=== PATIENT | female | born 1940 | race Caucasian/White ===

== ENCOUNTER → 2017-01-23 | Outpatient (CLI) | payer OTHER, BC ==
[~2017-01-23] VITALS: Ht 147.3 cm; Wt 67.2 kg
[~2017-01-23] MED LIST: ADVIL100 M2 PO; ALDACTONE25 MG PO; ALLERGY-TIME4 MG PO; B-100 COMPLEX100 MG PO; CALCIUM 600 +1 EAC1 PO; CELEBREX 200 M200 M1; COLACE100 MG PO; ESTRACE1 MG PO; HYDROCODON-ACE1 EAC7 PO; HYDROCODON-ACET15 ML PO; LEVOTHYROXINE0.05 MG PO; MAGNESIUM500 MG PO; MOBIC15 MG PO; MOBIC7.5 MG PO; MOM PO; PERCOCET 5-3251 EACH; PRAVACHOL40 MG PO; PRILOSEC 20 MG20 MG PO; TRAMADOL 50 MG50 MG PO; VIT A-BETA25000 UNIT PO; VITAMIN C + RO500 MG PO; VITAMIN D1000 UNI1 PO; XARELTO10 M1; XARELTO10 M1 PO
--- NOTE | ~2017-01-23 | HPC ---
[facility] [place] [address] PAIN MANAGEMENT CONSULTATION Name: ROSALIND GUERIN I Room #: REG GABRIELLA Franco.#: [id number] Admission: 01/23/17 Attend Phys: Knvg Mcwilliams DO Discharge: Date of : 39 Report #: [id number] THIS REPORT FOR: //name// CC: Kvng Avalos MD DATE OF SERVICE: 01/23/2017 CHIEF COMPLAINT: Axial back pain, right upper buttock pain. HISTORY OF PRESENT ILLNESS: As you know, the patient is a very pleasant 77-year-old female who returns today in followup visit with axial back pain, right upper buttock pain. The pain appears to be related to facet arthropathy in the right sacroiliac joint. We discussed with the patient at previous visit about various treatment options we have available. We started the patient on nonsteroidal anti-inflammatories for which the patient does report improvement in symptoms. She states that her daily activities are well controlled with meloxicam, but she has exacerbation of symptoms when she is much more active. She wishes to discuss possible changes in medication therapy, interventional treatments that might address ongoing axial back pain and right upper buttock symptoms. ALLERGIES: PENICILLIN. CURRENT MEDICATIONS: Estradiol 1 mg per day, spironolactone 50 mg twice a day, pantoprazole 20 mg per day, ascorbic acid 500 mg once a day, vitamin B complex 1 tab per day, cholecalciferol 1000 units per day, levothyroxine 50 mcg per day, magnesium oxide 500 mg per day, meloxicam 7.5 mg twice a day. SOCIAL HISTORY: The patient denies tobacco, alcohol, IV or illicit drug use. She is retired, retired years ago. She is accompanied by her who is present in room today. IMAGING: No new imaging available. PHYSICAL EXAMINATION: VITAL SIGNS: Blood pressure 157/66, pulse 76, respiratory rate 16, unlabored. The patient is 98% on room air, height 4 feet 10 inches tall, weight 148.2 pounds, BMI calculated 31. GENERAL: Well-developed, well-nourished, well-hydrated 77-year-old female appearing stated age, placing pain score today 2/10. HEENT: Normocephalic, atraumatic. Pupils equal, round, reactive to light. EXTREMITIES: Show no clubbing, no cyanosis, no edema. MUSCULOSKELETAL: The patient has palpatory tenderness over the lower lumbar [facility] [address] [place] [address] PAIN MANAGEMENT CONSULTATION Name: ROSALIND GUERIN I Room #: REG GABRIELLA Vadim#: [id number] Admission: 01/23/17 Attend Phys: Kvng Mcwilliams DO Discharge: Date of : 39 Report #: [id number] spine, right greater than left. Palpatory tenderness over the facet joints at L4-L5 and L5-S1 cause intensification of pain. Lumbar provocation testing also leads to axial back symptoms. Seated straight leg raising negative. Supine straight leg raising negative. There is palpatory tenderness noted over the right sacroiliac joint. Deep palpation in area causes intensification of symptoms as well. ASSESSMENT: 1. Right sacroiliac joint pain. 2. Lumbosacral spondylosis without radicular symptoms. 3. Facet arthropathy of the lumbar spine. 4. Degeneration of lumbar spine. 5. Spinal stenosis of the lumbar region. 6. Chronic intractable pain. PLAN: 1. The patient returns today in followup visit where we have discussed the findings on physical exam, how they correlate to the patient's symptoms. It does appear the patient suffers from facet arthropathy of the lumbar region, also some SI joint dysfunction. We discussed with the patient that options for treatment would include physical therapy, stretching exercise, core strengthening. The patient indicates that this would be near impossible for them to achieve secondary to lack of access to physical therapy within the area, also lack of available funds to pay for the co-pays. We discussed medication management, continuation of the nonsteroidal anti-inflammatory, which works for her daily pain levels and addition of a pain medication for as needed when the patient becomes more active. We also discussed intra-articular facet injections, medial branch nerve blocks, radiofrequency lesioning to address axial back pain and we discussed intraarticular SI joint injections for the right SI joint dysfunction. After reviewing risks and benefits of all proposed treatment options, the patient chose medication management changes. 2. The patient will be continued on the meloxicam, this is working well for her baseline pain. She was given 7.5 mg dose 1 tab p.o. b.i.d., given #60 tablets, 6 refills that gives her 7 months' worth of medication. 3. The patient was provided a prescription of tramadol 50 mg dose 1 tab every 6 hours p.r.n. for pain, given the patient #120 tablets, 2 refills. The patient is to utilize this medication when she is attempting to become more active. She should take this about 20 minutes before her activity and may take a second tablet after she completes her physical activity for the day. She is to watch for side effects such as somnolence, decrease in mental acuity, disorientation, confusion and constipation with the use of this medication. 4. We will see the patient back in followup visit in approximately 3 months, [address] [address] PAIN MANAGEMENT CONSULTATION Name: ROSALIND GUERIN I Room #: REG GABRIELLA Fierro#: [id number] Admission: 01/23/17 Attend Phys: Kvng Mcwilliams DO Discharge: Date of : 39 Report #: [id number] then we will review efficacy of medication at that time and discuss interventional treatments if necessary. By: [id number] Kvng Mcwilliams DO /nt
[2017-01-23 13:44] VITALS: BP 157/66
== END | disposition home or self-care (01) ==
LOC: PAIN 06:34
DX: M53.3 Sacrococcygeal disorders, not elsewhere classified (principal); M47.897 Other spondylosis, lumbosacral region; M51.36 Other intervertebral disc degeneration, lumbar region; M48.06 Spinal stenosis, lumbar region; G89.29 Other chronic pain

== ENCOUNTER → 2017-04-11 | Outpatient (CLI) | payer OTHER, BC | LOC: RAD 11:57 | DX: Z12.31 Encounter for screening mammogram for malignant neoplasm of breast (principal) ==

== ENCOUNTER → 2017-10-02 | Outpatient (CLI) | payer OTHER, BC ==
[~2017-10-02] VITALS: Ht 147.3 cm; Wt 66.5 kg
[~2017-10-02] MED LIST changes: +LUTEIN-ZEAXANT1 EACH PO; +VITAMINC500 PO
--- NOTE | ~2017-10-02 | HPC ---
[facility] [address] [place] [address] PAIN MANAGEMENT CONSULTATION Name: ROSALIND GUERIN I Room #: REG GABRIELLA M.R.#: [id number] Admission: 10/02/17 Attend Phys: Kvng Mcwilliams DO Discharge: Date of : 39 Report #: [id number] THIS REPORT FOR: //name// CC: Kvng Avalos MD DATE OF SERVICE: 10/02/2017 REFERRING PHYSICIAN: Luz Ferrari. CHIEF COMPLAINT: Low back pain, right buttock and posterolateral thigh pain. HISTORY OF PRESENT ILLNESS: As you know, the patient is a very pleasant 77-year-old female who returns today in followup visit with recurrent low back pain, right lower extremity pain with paresthesias. The patient places current pain score 6-7/10. States the pain is shooting, sharp, numbness and tingling in sensation, exacerbated with standing, walking and bending, improves with medications. She returns today reporting 90% improvement in overall pain with previous epidural injection lasting for nearly 2 months. She returns today requesting next in the series of epidural injections to improve the current 6-7/10 pain. She has denied new injury, new trauma that may have led to continuation of symptoms. ALLERGIES: PENICILLIN. CURRENT MEDICATIONS: Estradiol 1 mg once a day, spironolactone 50 mg twice a day, pantoprazole 20 mg once a day, ascorbic acid 500 mg once a day, vitamin B complex 1 tab per day, cholecalciferol 1000 units per day, levothyroxine 50 mcg per day, magnesium oxide 500 mg once a day, meloxicam 7.5 mg twice a day. SOCIAL HISTORY: The patient denies tobacco, alcohol, IV or illicit drug use. She is retired, retired years ago. She is accompanied by her who is present in room today. IMAGING: No new imaging available. PQRS: The patient does have history of osteoarthritis, no rheumatoid arthritis. Osteoarthritis is being treated conservatively. Pain intensity today 6-02/26. Fall risk is no, she has not had a fall in the past 3 months. She is not on blood thinner. She is not being treated currently for hypertension. She is not on opioids longer than 6 months. She has a low risk for opioid abuse. Functional assessment tool shows pain impact of 41/70, indicating mild to moderate interference. [address] [address] PAIN MANAGEMENT CONSULTATION Name: ROSALIND GUERIN I Room #: REG LUCHOTim Fierro#: [id number] Admission: 10/02/17 Attend Phys: Kvng Mcwilliams DO Discharge: Date of : 39 Report #: [id number] PHYSICAL EXAMINATION: VITAL SIGNS: Blood pressure 173/65, pulse is 81, respiratory rate 16, unlabored, the patient is 97% on room air. Height 4 feet 10 inches tall, weight 146.6 pounds, BMI calculated 30.6. GENERAL: Well-developed, well-nourished, well-hydrated 77-year-old female, appearing her stated age, placing current pain score 6-7/10. HEENT: Normocephalic, atraumatic. Pupils equal, round, reactive to light. Extraocular muscles are intact. EXTREMITIES: Show no clubbing, no cyanosis, no edema. MUSCULOSKELETAL: Seated straight leg raising negative. Supine straight leg raising positive on the right. Danya test negative. Modified Gaenslen's positive for axial low back pain. Ankle clonus negative. Babinski is negative. ASSESSMENT: 1. Symptomatic lumbar radiculopathy. 2. Lumbosacral spondylosis with radiculopathy. 3. Facet arthropathy of the lumbar spine. 4. Degeneration of the lumbar spine. 5. Spinal stenosis of the lumbar spine. 6. Chronic intractable pain. PLAN: 1. The patient returns today in followup visit having received 90% improvement in overall pain with the epidural injection provided at last visit. She returns today in followup visit requesting to undergo next in the series of epidural injections to build on success of previous intervention to address her 6-7/10 pain. The patient has been advised risks and benefits of the procedure, states understood and wished to proceed. 2. No medication changes were made at today's visit. The patient to continue current medical therapy as previously prescribed. 3. The patient to return to our clinic on an as needed basis for possible next in the series of epidural injections. PROCEDURE NOTE: DESCRIPTION OF PROCEDURE: L5-S1 interlaminar epidural steroid injection under fluoroscopic guidance. This is the 2nd procedure of the first series that the patient is undergoing. After obtaining written consent, the patient was taken back to the fluoroscopy suite, placed in a prone position with pillow under the abdomen to decrease lumbar lordosis. The skin overlying the lumbosacral area was then prepped and draped in aseptic fashion. The L5-S1 vertebral interspace was then identified by AP fluoroscopy. The skin and subcutaneous tissue overlying the target site of injection was anesthetized with 3 mL 1% lidocaine. [address] [address] PAIN MANAGEMENT CONSULTATION Name: ROSALIND GUERIN I Room #: JENELLE Fierro#: [id number] Admission: 10/02/17 Attend Phys: Kvng Mcwilliams DO Discharge: Date of : 39 Report #: [id number] A 20-gauze 3-1/2 inch Tuohy needle was then advanced under fluoroscopic guidance towards the epidural space using a midline approach. The epidural space was identified using loss of resistance to air technique. After negative aspiration for heme or cerebrospinal fluid, a total of 1 mL of Omnipaque was injected. A lumbar epidurogram was confirmed using both AP and lateral fluoroscopy. After negative aspiration for heme or cerebrospinal fluid, 5 mL of a solution containing 2 mL 40 mg per mL, 80 mg total triamcinolone, 3 mL lidocaine 1% was injected in increments. Contrast spread was noted postepidural space. The needle was then retracted approximately half way and needle tract flushed with 1 mL of lidocaine. Needle was then removed. There were no apparent sensory or motor deficits in the lower extremity following the procedure. A sterile bandage was placed over the injection site. The heart rate, pulse, oximetry and blood pressure were continuously monitored after the procedure. There were no apparent complications. The patient tolerated the procedure well and was carefully escorted to the recovery room in stable condition. There were no apparent complications. After meeting discharge criteria, the patient was then discharged home. <ELECTRONICALLY SIGNED> By: Kvng Mcwilliams DO 10/10/17 0715 [id number] Kvng Mcwilliams DO /nt
[2017-10-02 10:24] VITALS: BP 173/65
== END ==
LOC: PAIN 07:00
DX: M54.16 Radiculopathy, lumbar region (principal); M47.817 Spondylosis without myelopathy or radiculopathy, lumbosacral region; M12.88 Other specific arthropathies, not elsewhere classified, other specified site; M51.36 Other intervertebral disc degeneration, lumbar region; M48.061 Spinal stenosis, lumbar region without neurogenic claudication; G89.29 Other chronic pain; Z88.0 Allergy status to penicillin; M54.5 Low back pain; Z79.899 Other long term (current) drug therapy; I10 Essential (primary) hypertension

== ENCOUNTER → 2017-12-25 | Outpatient (CLI) | payer OTHER, BC ==
[~2017-12-25] VITALS: Ht 147.3 cm; Wt 67.2 kg
[~2017-12-25] MED LIST changes: -LUTEIN-ZEAXANT1 EACH PO
--- NOTE | ~2017-12-25 | HPC ---
[facility] [place] [address] PAIN MANAGEMENT CONSULTATION Name: ROSALIND GUERIN I Room #: REG GABRIELLA M.Hallie.#: [id number] Admission: 12/25/17 Attend Phys: Kvng Mcwilliams DO Discharge: Date of : 39 Report #: [id number] THIS REPORT FOR: //name// CC: Kvng Avalos MD DATE OF SERVICE: 12/25/2017 CHIEF COMPLAINT: Low back pain, right buttock and posterolateral thigh pain. HISTORY OF PRESENT ILLNESS: As you know, the patient is a very pleasant 77-year-old female who returns today in followup visit with recurrence of low back pain, right lower extremity pain with paresthesias. The patient is now placing pain score at 7/10. She reports with previous epidural injection performed on 10/02/2017, a 75% improvement in overall pain. She has had a slow and progressive return of symptoms without new inciting injury or trauma. She returns requesting next in the series of epidural injections to build on success of previous intervention. ALLERGIES: PENICILLIN. CURRENT MEDICATIONS: Estradiol, spironolactone, pantoprazole, ascorbic acid, vitamin B complex, cholecalciferol, levothyroxine, magnesium oxide, meloxicam. SOCIAL HISTORY: The patient denies tobacco, alcohol, IV or illicit drug use. She is retired. retired years ago. She is unaccompanied today. IMAGING: No new imaging available. PQRS: The patient has osteoarthritis, no rheumatoid arthritis. Pain intensity today 7/10. She is not a fall risk, has not had a fall in last 3 months. She is not on blood thinners. She is not treated for hypertension. She is not on opioids. She has low risk for opioid addiction. She is placing a pain impact score functional assessment at 35/70 moderate interference. PHYSICAL EXAMINATION: VITAL SIGNS: Blood pressure 180/97, pulse 72, respiratory rate 20, unlabored. The patient is 100% on room air. Height 4 feet 10 inches tall, weight 148.2 pounds, BMI calculated 31.0. GENERAL: Well-developed, well-nourished, well-hydrated 77-year-old female, appearing her stated age, placing current pain score at 7/10. HEENT: Normocephalic, atraumatic. Pupils equal, round, reactive to light. EXTREMITIES: Show no clubbing, no cyanosis, no edema. MUSCULOSKELETAL: Lower extremity strength equal and symmetrical 5/5, muscle [address] [address] PAIN MANAGEMENT CONSULTATION Name: ROSALIND GUERIN I Room #: REG [facility]..#: [id number] Admission: 12/25/17 Attend Phys: Kvng Mcwilliams DO Discharge: Date of : 39 Report #: [id number] bulk and tone equal and symmetrical. Seated straight leg raising negative. Supine straight leg raising remains positive on the right at approximately 45 degree angle. Danya test negative. Modified Gaenslen's is positive for axial low back pain. Ankle clonus negative. Babinski is negative. ASSESSMENT: 1. Symptomatic lumbar radiculopathy. 2. Lumbosacral spondylosis with radiculopathy. 3. Facet arthropathy of the lumbar spine. 4. Degeneration of the lumbar spine. 5. Spinal stenosis of the lumbar spine. 6. Chronic intractable pain. PLAN: 1. The patient returns today in followup visit requesting to undergo next in the series of epidural injections. The patient reports good efficacy with previous injections 75% improvement in overall pain until just recently with a slow and progressive return of symptoms. She returns requesting an epidural injection to build on success of previous intervention. The patient was advised risks and benefits of this procedure. Risks have included but are not necessarily limited to bleeding, bruising, infection, worsening pain, no relief of pain, also risk of temporary or permanent muscle weakness, temporary or permanent nerve damage, possible paralysis and . The patient states she understood and wished to proceed. 2. No medication changes made at today's visit. The patient to continue current medical therapy as previously prescribed. We will see the patient back in followup visit on an as needed basis for next in a series of epidural injections. <ELECTRONICALLY SIGNED> By: Kvng Mcwilliams DO 01/01/18 0810 [id number] Kvng Mcwilliams DO /nt
--- NOTE | ~2017-12-25 | P ---
[facility] [address] PROCEDURE REPORT Name: ROSALIND GUERIN I Room #: REG [facility].#: [id number] Admission: 12/25/17 Attend Phys: Kvng Mcwilliams DO Discharge: Date of : 39 Report #: [id number] THIS REPORT FOR: //name// CC: Kvng Avalos MD DATE OF SERVICE: 12/25/2017 DESCRIPTION OF PROCEDURE: L5-S1 right paramedian epidural steroid injection under fluoroscopic guidance. This is the third procedure of the first series that the patient is undergoing. After obtaining written consent, the patient was taken back to the fluoroscopy suite, placed in a prone position with pillow under the abdomen to decrease lumbar lordosis. The skin overlying the lumbosacral area was then prepped and draped in aseptic fashion. The L5-S1 vertebral interspace was then identified by AP fluoroscopy. The skin and subcutaneous tissue overlying the target site of injection was anesthetized with 3 mL 1% lidocaine. A 20-gauge 3-1/2-inch Tuohy needle was then advanced under fluoroscopic guidance towards the epidural space using a right paramedian approach. The epidural space was identified using loss of resistance to air technique. After negative aspiration for heme or cerebrospinal fluid, a total of 1 mL of Omnipaque was injected. A lumbar epidurogram was confirmed using both AP and lateral fluoroscopy. After negative aspiration for heme or cerebrospinal fluid, 5 mL of a solution containing 2 mL 40 mg per mL, 80 mg total triamcinolone, 3 mL lidocaine 1% was injected in increments. Contrast spread was noted posterior epidural space. The needle was then retracted approximately half way and needle tract flushed with 1 mL of 1% lidocaine. Needle was then removed. There were no apparent sensory or motor deficits in the lower extremity following the procedure. A sterile bandage was placed over the injection site. The heart rate, pulse, oximetry and blood pressure were continuously monitored after the procedure. There were no apparent complications. The patient tolerated the procedure well and was carefully escorted to the recovery room in stable condition. There were no apparent complications. After meeting discharge criteria, the patient was then discharged home. <ELECTRONICALLY SIGNED> By: Kvng Mcwilliams DO 01/01/18 0810 [id number] [id number] Kvng Mcwilliams DO /nt
[2017-12-25 10:20] VITALS: BP 180/97
== END | disposition home or self-care (01) ==
LOC: PAIN 06:15
DX: M47.27 Other spondylosis with radiculopathy, lumbosacral region (principal); M48.061 Spinal stenosis, lumbar region without neurogenic claudication; M46.96 Unspecified inflammatory spondylopathy, lumbar region; G89.29 Other chronic pain; M19.90 Unspecified osteoarthritis, unspecified site; Z88.0 Allergy status to penicillin; Z79.899 Other long term (current) drug therapy; Z88.8 Allergy status to other drugs, medicaments and biological substances

== ENCOUNTER → 2018-04-02 | Outpatient (CLI) | payer OTHER, BC ==
[~2018-04-02] VITALS: Ht 147.3 cm; Wt 68.9 kg
[~2018-04-02] MED LIST changes: +LUTEIN-ZEAXANT1 EACH PO
--- NOTE | ~2018-04-02 | HPC ---
[facility] [address] [place] [address] PAIN MANAGEMENT CONSULTATION Name: ROSALIND GUERIN I Room #: REG GABRIELLA MNoble.#: [id number] Admission: 04/02/18 Attend Phys: Kvng Mcwilliams DO Discharge: Date of : 39 Report #: [id number] THIS REPORT FOR: //name// CC: Kvng Avalos MD DATE OF SERVICE: 04/02/2018 CHIEF COMPLAINT: Low back pain, right lower extremity pain with paresthesias. HISTORY OF PRESENT ILLNESS: As you know, the patient is a very pleasant 78-year-old female who returns today in followup visit requesting to undergo next in the series of epidural injections. The patient has had a slow and progressive return of symptoms, now reporting pain score at 8/10. She denies new injury, new trauma or any changes in medical history since our last visit. She has done very well with previous epidural injection reporting upwards of 80% improvement in overall pain lasting 4 months. She returns to undergo next in the series of epidural injections. ALLERGIES: PENICILLIN, FENOFIBRATE, DIPHENHYDRAMINE. CURRENT MEDICATIONS: Ocuvite, tramadol, meloxicam, estradiol, spironolactone, omeprazole, vitamin B, cholecalciferol, levothyroxine, ascorbic acid. SOCIAL HISTORY: The patient denies tobacco, alcohol, IV or illicit drug use. She is retired, retired years ago, accompanied by her , present in room today. IMAGING: No new imaging available. PQRS: The patient has known low back, osteoarthritis, bilateral hip osteoarthritis and bilateral knee osteoarthritis as well as arthritic changes in the feet bilaterally. She does not suffer from rheumatoid arthritis. She is placing pain score today at 8/10. She is not a fall risk, has not had a fall in the last 3 months. She is not on blood thinners, not treated for hypertension. She is not on chronic opioids. She is placing pain assessment at 41/70 which is a mild to moderate finding. PHYSICAL EXAMINATION: VITAL SIGNS: Blood pressure 180/95, pulse 81, respiratory rate 20 and unlabored. The patient is 98% on room air. Height 4 feet 10 inches tall, weight 152 pounds, BMI calculated 31.8. GENERAL: Well-developed, well-nourished, well-hydrated, exogenously obese 78-year-old female, appearing her stated age. She is placing current pain score [address] [address] PAIN MANAGEMENT CONSULTATION Name: ROSALIND GUERIN I Room #: REG CLI [facility].#: [id number] Admission: 04/02/18 Attend Phys: Kvng Mcwilliams DO Discharge: Date of : 39 Report #: [id number] at 8/10. HEENT: Normocephalic, atraumatic. Pupils are equal, round, reactive to light. EXTREMITIES: Show no clubbing, no cyanosis, no edema. MUSCULOSKELETAL: Seated straight leg raising negative. Supine straight leg raising is again positive on the right. Danya's test negative. Modified Gaenslen's positive for axial low back pain. Ankle clonus negative. Babinski is negative. Muscle bulk and tone equal and symmetrical in the lower extremities. ASSESSMENT: 1. Symptomatic lumbar radiculopathy. 2. Lumbosacral spondylosis with radiculopathy. 3. Facet arthropathy of the lumbar spine. 4. Degeneration of lumbar spine. 5. Spinal stenosis of the lumbar spine. 6. Chronic intractable pain. PLAN: 1. The patient returns today in followup visit requesting to undergo next in the series of epidural injections under fluoroscopic guidance. The patient has noted good benefit with previous epidural injection. She is hopeful to see similar improvement today. She has been advised the risks and benefits of the procedure, states understood and wished to proceed. 2. No medication changes made at today's visit. The patient to continue current medical therapy as previously prescribed. 3. We will see the patient back in followup visit on an as needed basis for possible next in a series of epidural injections and discuss other treatment options if necessary. PROCEDURE NOTE: DESCRIPTION OF PROCEDURE: L5-S1 right paramedian epidural steroid injection under fluoroscopic guidance. This is the first procedure of the second series that the patient is undergoing. After obtaining written consent, the patient was taken back to the fluoroscopy suite, placed in a prone position with pillow under the abdomen to decrease lumbar lordosis. The skin overlying the lumbosacral area was then prepped and draped in aseptic fashion. The L5-S1 vertebral interspace was then identified by AP fluoroscopy. The skin and subcutaneous tissue overlying the target site of injection was anesthetized with 3 mL 1% lidocaine. A 20-gauge, 3-1/2 inch Tuohy needle was then advanced under fluoroscopic guidance towards the epidural space using a right paramedian approach. The epidural space was identified using loss of resistance to air technique. After [facility] [address] [place] [address] PAIN MANAGEMENT CONSULTATION Name: ROSALIND GUERIN I Room #: REG Tim Gamez#: [id number] Admission: 04/02/18 Attend Phys: Kvng Mcwilliams DO Discharge: Date of : 39 Report #: [id number] negative aspiration for heme or cerebrospinal fluid, a total of 1 mL of Omnipaque was injected. A lumbar epidurogram was confirmed using both AP and lateral fluoroscopy. After negative aspiration for heme or cerebrospinal fluid, 5 mL of a solution containing 2 mL 40 mg per mL, 80 mg total triamcinolone, 3 mL lidocaine 1% was injected in increments. Contrast spread was noted posterior epidural space. The needle was then retracted approximately half way and needle tract flushed with 1 mL of lidocaine. Needle was then removed. There were no apparent sensory or motor deficits in the lower extremity following the procedure. A sterile bandage was placed over the injection site. The heart rate, pulse, oximetry and blood pressure were continuously monitored after the procedure. There were no apparent complications. The patient tolerated the procedure well and was carefully escorted to the recovery room in stable condition. There were no apparent complications. After meeting discharge criteria, the patient was then discharged home. <ELECTRONICALLY SIGNED> By: Kvng Mcwilliams DO 04/03/18 [id number] Kvng Mcwilliams DO /nt
[2018-04-02 13:31] VITALS: BP 180/95
== END | disposition home or self-care (01) ==
LOC: PAIN 07:07
DX: M51.16 Intervertebral disc disorders with radiculopathy, lumbar region (principal); M46.96 Unspecified inflammatory spondylopathy, lumbar region; M47.27 Other spondylosis with radiculopathy, lumbosacral region; M48.061 Spinal stenosis, lumbar region without neurogenic claudication; G89.29 Other chronic pain; Z88.8 Allergy status to other drugs, medicaments and biological substances; Z88.0 Allergy status to penicillin; Z79.899 Other long term (current) drug therapy; Z98.890 Other specified postprocedural states

== ENCOUNTER → 2018-06-20 | Outpatient (CLI) | payer OTHER, BC | LOC: RAD 03:55 | DX: Z12.31 Encounter for screening mammogram for malignant neoplasm of breast (principal) ==

== ENCOUNTER → 2018-08-27 | Outpatient (CLI) | payer OTHER, BC ==
[~2018-08-27] VITALS: Ht 147.3 cm; Wt 68.8 kg
--- NOTE | ~2018-08-27 | P ---
[facility] [place] [address] [place] [address] PROCEDURE REPORT Name: ROSALIND GUERIN I Room #: REG [facility]#: [id number] Admission: 08/27/18 Attend Phys: Kvng Mcwilliams DO Discharge: Date of : 39 Report #: [id number] THIS REPORT FOR: //name// CC: Kvng Avalos MD DATE OF SERVICE: 08/27/2018 DESCRIPTION OF PROCEDURE: L5-S1 right parasagittal epidural steroid injection under fluoroscopic guidance. This is the second procedure of the second series that the patient is undergoing. After obtaining written consent, the patient was taken back to the fluoroscopy suite, placed in a prone position with pillow under the abdomen to decrease lumbar lordosis. The skin overlying the lumbosacral area was then prepped and draped in aseptic fashion. The L5-S1 vertebral interspace was then identified by AP fluoroscopy. The skin and subcutaneous tissue overlying the target site of injection was anesthetized with 3 mL 1% lidocaine. A 20-gauge 3-1/2-inch Tuohy needle was then advanced under fluoroscopic guidance towards the epidural space using a right parasagittal approach. The epidural space was identified using loss of resistance to air technique. After negative aspiration for heme or cerebrospinal fluid, a total of 0.5 mL of Omnipaque was injected. A lumbar epidurogram was confirmed using both AP and lateral fluoroscopy. After negative aspiration for heme or cerebrospinal fluid, 5 mL of a solution containing 2 mL 40 mg per mL, 80 mg total triamcinolone, 3 mL lidocaine 1% was injected in increments. Contrast spread was noted posterior epidural space. The needle was then retracted approximately half way and needle tract flushed with 1 mL of 1% lidocaine. Needle was then removed. There were no apparent sensory or motor deficits in the lower extremity following the procedure. A sterile bandage was placed over the injection site. The heart rate, pulse, oximetry and blood pressure were continuously monitored after the procedure. There were no apparent complications. The patient tolerated the procedure well and was carefully escorted to the recovery room in [address] [address] PROCEDURE REPORT Name: [facility]IN [id number] Admission: 08/27/18 Attend Phys: Kvng Mcwilliams DO Discharge: Date of : 39 Report #: [id number] stable condition. There were no apparent complications. After meeting discharge criteria, the patient was then discharged home. By: [id number] Kvng Mcwilliams DO /nt
--- NOTE | ~2018-08-27 | HPC ---
[facility] [address] [place] [address] PAIN MANAGEMENT CONSULTATION Name: ROSALIND GUERIN I Room #: REG GABRIELLA M.R.#: [id number] Admission: 08/27/18 Attend Phys: Kvng Mcwilliams DO Discharge: Date of : 39 Report #: [id number] THIS REPORT FOR: //name// CC: Kvng Avalos MD DATE OF SERVICE: 08/27/2018 CHIEF COMPLAINT: Low back pain, right lower extremity pain with paresthesias. HISTORY OF PRESENT ILLNESS: As you know, the patient is a very pleasant 78-year-old female who returns today in followup visit to undergo next in the series of lumbar epidural injections to address lumbar radicular symptoms for which she places pain score 7/10. She states the pain is exacerbated with walking, getting in and out of chairs, repositioning and lying down tends to improve pain as well as her previous epidural injections. She reports improvement of 50%-60% with previous epidural injection lasting for 3 months. She returns today in followup visit to undergo next in the series of epidural injections. She denies new injury, new trauma or any changes in medical history since our last visit. ALLERGIES: PENICILLIN, FENOFIBRATE, DIPHENHYDRAMINE. CURRENT MEDICATIONS: Tramadol, Ocuvite, meloxicam, ascorbic acid, levothyroxine, cholecalciferol, vitamin B complex, Allergy-Time, omeprazole, spironolactone, Estrace. SOCIAL HISTORY: The patient denies tobacco, alcohol, IV or illicit drug use. She is retired, retired years ago. She is accompanied by her who is present in room today. IMAGING: No new imaging available. PQRS: The patient has known arthritic changes of low back, bilateral hips and bilateral knees as well as involving the bilateral feet. She does not have a diagnosis of rheumatoid arthritis. She is placing pain intensity today at 7/10. She is a fall risk, but has not had a fall in the last 3 months. She is utilizing a 4-prong cane for ambulation. She is not on blood thinner. She has not been treated for hypertension. She is on a chronic opioid. She has a low opiate addiction potential. She is placing pain impact score 41/70, moderate to severe interference of daily activities secondary to pain. PHYSICAL EXAMINATION: [facility] [address] [place] [address] PAIN MANAGEMENT CONSULTATION Name: ROSALIND GUERIN I Room #: JENELLE QUIROZ Vadim#: [id number] Admission: 08/27/18 Attend Phys: Kvng Mcwilliams DO Discharge: Date of : 39 Report #: [id number] VITAL SIGNS: Blood pressure 161/74, pulse is 80, respiratory rate 18 and unlabored. The patient is 99% on room air. Height 4 feet 10 inches tall, weight 151.6 pounds, BMI calculated 31.7. GENERAL: Well-developed, well-nourished, well-hydrated, exogenously obese 78-year-old female appearing stated age, placing current pain score 7/10. HEENT: Normocephalic, atraumatic. Pupils equal, round, reactive to light. EXTREMITIES: Show no clubbing, no cyanosis, no edema. MUSCULOSKELETAL: Seated straight leg raising negative. Supine straight leg raising positive right. Danya's test negative. Modified Gaenslen's is positive for axial low back pain. Muscle bulk and tone is symmetrical in comparing left lower extremity over right. Gait mildly antalgic favoring right lower extremity. ASSESSMENT: 1. Symptomatic lumbar radiculopathy. 2. Lumbosacral spondylosis with radiculopathy. 3. Facet arthropathy of the lumbar spine. 4. Lumbar degeneration. 5. Spinal stenosis of lumbar spine. 6. Chronic intractable pain. PLAN: 1. The patient has returned today in followup visit having noted excellent benefit with previous epidural injection reporting 3 months' worth of improvement, so that she could go about her activities of daily living. She returns today in followup visit requesting to undergo next in the series in hopes of improving pain further. She has been advised risks and benefits, states she understood and wished to proceed. 2. No medication changes made at today's visit. The patient to continue current medical therapy as previously prescribed. 3. We will see the patient back in followup visit on an as needed basis for possible next in the series of epidural injections. By: [id number] Kvng Mcwilliams DO /nt
[2018-08-27 10:41] VITALS: BP 161/74
--- NOTE | 2018-08-27 10:54 | NUR ---
Pain Clinic Assessment: 1. History of Osteoarthritis: YES History of Rheumatoid Arthritis: NO 2. Height: 4 ft. 10 in. 147.3 cm. Weight: 151.6 lb. oz. 68.765 kg. Patient's BMI: 31.7 3. Vital Signs: BP: 161/74 Pulse: 80 Resp: 18 Temp: 02 Sat: 99 ECG Mon: 4. Pain Intensity: 7 5. Fall Risk: Dizziness: N Needs help standing or walking: Y Fallen in the last 3 months: N Fall risk comments: 6. Patient on Blood Thinner: None 7. History of Hypertension: N 8. Opioid Therapy greater than 6 weeks: N Opiate Contract Signed: 9. Risk Assessment Tool Provided: LOW RISK 0/3 10. Functional Assessment Tool: 11. Recreational Drug Use: Never Drug Type: Tobacco Use: Never Smoker Tobacco Type: Amount or Packs/day: How Many Years: Alcohol Use: No Frequency: Quant:
== END | disposition home or self-care (01) ==
LOC: PAIN 07:31
DX: M51.16 Intervertebral disc disorders with radiculopathy, lumbar region (principal); M47.27 Other spondylosis with radiculopathy, lumbosacral region; M12.88 Other specific arthropathies, not elsewhere classified, other specified site; M48.061 Spinal stenosis, lumbar region without neurogenic claudication; G89.29 Other chronic pain; I10 Essential (primary) hypertension; E66.9 Obesity, unspecified; Z88.0 Allergy status to penicillin; Z88.8 Allergy status to other drugs, medicaments and biological substances; Z79.899 Other long term (current) drug therapy; Z79.891 Long term (current) use of opiate analgesic; Z68.31 Body mass index [BMI] 31.0-31.9, adult

== ENCOUNTER → 2018-12-03 | Outpatient (CLI) | payer OTHER, BC ==
[~2018-12-03] VITALS: Ht 147.3 cm; Wt 73.5 kg
--- NOTE | ~2018-12-03 | HPC ---
[facility] [address] [place] [address] PAIN MANAGEMENT CONSULTATION Name: ROSALIND GUERIN I Room #: REG GARBIELLA M.R.#: [id number] Admission: 12/03/18 ������������������ Attend Phys: Kvng Mcwilliams DO Discharge: ������������������ Date of : 39 Report #: [id number] THIS REPORT FOR: //name// CC: Kvng Avalos MD DATE OF SERVICE: 12/03/2018 REFERRING PHYSICIAN: Emeterio Ellington M.D. PRIMARY CARE PHYSICIAN: Naun Avalos M.D. CHIEF COMPLAINT: Low back pain and right lower extremity pain with paresthesias. HISTORY OF PRESENT ILLNESS: As you know, the patient is a 78-year-old female who returns today in followup visit requesting to undergo next in the series of lumbar epidural injections under fluoroscopic guidance. The patient reports pain today is 7/10, states the pain is sharp, pressure, shooting in sensation, exacerbated with walking, climbing upstairs or getting up from a chair, improves with repositioning and lying down and previous epidural injection. She received 50% improvement in overall pain with previous injection, returning today requesting to undergo next in the series in hopes of improving pain further. She denies new injury or new trauma. ALLERGIES: PENICILLIN, and DIPHENHYDRAMINE. CURRENT MEDICATIONS: Meloxicam, ascorbic acid, levothyroxine, estradiol, spironolactone, omeprazole, chlorphentermine, vitamin B complex and cholecalciferol. SOCIAL HISTORY: The patient denies tobacco, alcohol or IV or illicit drug use. She is retired, retired years ago, accompanied by her who is present in room today. IMAGING DATA: No new imaging available. PQRS: The patient has arthritic changes of the lumbar spine, bilateral hips and bilateral knees as well as bilateral feet. She is placing pain intensity is 7/10. She is not a fall risk but has had some issues with vertigo, which is currently being evaluated. She has not had a fall in last 3 months. She is not on blood thinners. She is not treated for hypertension. She is not on chronic opioids. She has a low opiate addiction potential. She is placing pain impact [address] [address] PAIN MANAGEMENT CONSULTATION Name: ROSALIND GUERIN I Room #: REG [facility]..#: [id number] Admission: 12/03/18 ������������������ Attend Phys: Kvng Mcwilliams DO Discharge: ������������������ Date of : 39 Report #: [id number] score today 41/70. [id number] interference of daily activities secondary to pain. PHYSICAL EXAMINATION: VITAL SIGNS: Blood pressure 156/101, pulse is 81 and respiratory rate 18 and unlabored. The patient is 96% on room air. Height 4 feet 10 inches tall and weight 162 pounds and BMI calculated 33.9. GENERAL: Well-developed, well-nourished, well-hydrated 78-year-old female appearing stated age, placing current pain score 7/10. HEENT: Normocephalic and atraumatic. Pupils equal, round and reactive to light. EXTREMITIES: Show no clubbing, no cyanosis and no edema. MUSCULOSKELETAL: Lower extremity strength appears symmetrical again today 5/5. Slight giveaway strength noted with hip flexion, knee extension on the right when compared to left. Seated straight leg raising negative. Supine straight leg raising positive on the right. Danya's test negative. Modified Gaenslen's positive for axial low back pain. Gait mildly antalgic favoring right lower extremity. ASSESSMENT: 1. Symptomatic lumbar radiculopathy. 2. Lumbosacral spondylosis with radiculopathy. 3. Facet arthropathy of the lumbar spine. 4. Lumbar degeneration. 5. Essential hypertension. 6. Chronic intractable pain. PLAN: 1. The patient has returned today in followup visit requesting to undergo next in the series of lumbar epidural injections to address 7/10 pain. She has been advised the risks and benefits of this procedure and states she understood and wished to proceed. As you are aware, the patient received 50% improvement in overall pain with previous injections, we are hopeful to see similar improvement if not better improvement with today's injection. 2. The patient's blood pressure noted to be elevated today 156/101. Previous blood pressure at her last visit was 161/74. The patient needs to follow up with her PCP for adjustments in her antihypertensive medications. We will defer to the primary team for adjustments in this therapy as this is necessary given the elevated numbers today. 3. We will see the patient back in followup visit on an as needed basis for possible next in the series of epidural injections. PROCEDURE NOTE DESCRIPTION OF PROCEDURE: L5-S1 right paramedian epidural steroid injection under fluoroscopic guidance. [address] [address] PAIN MANAGEMENT CONSULTATION Name: ROSALIND GUERIN I Room #: JENELLE Fierro#: [id number] Admission: 12/03/18 ������������������ Attend Phys: Kvng Mcwilliams DO Discharge: ������������������ Date of : 39 Report #: [id number] After obtaining written consent, the patient was taken back to fluoroscopy suite, placed in prone position with pillow under abdomen to decrease lumbar lordosis. Skin overlying lumbosacral area then prepped and draped in aseptic fashion. The L5-S1 vertebral interspace identified by AP fluoroscopy. Skin and subcutaneous tissue overlying target site of injection anesthetized with 3 mL of 1% lidocaine. A 20-gauge 3-1/2 inch Tuohy needle advanced under fluoroscopic guidance towards the epidural space using a right paramedian approach. Epidural space identified using loss of resistance to air technique. After negative aspiration for heme or cerebrospinal fluid, 1 mL of Omnipaque injected. Lumbar epidurogram confirmed using both AP and lateral fluoroscopy. After negative aspiration for heme or cerebrospinal fluid, 5 mL of a solution containing 2 mL 40 mg per mL, 80 mg total triamcinolone and 3 mL lidocaine 1% injected slowly. Needle retracted long-term, flushed with 1 mL of 1% lidocaine and then removed. Sterile bandage placed over injection site. No new motor deficits present in lower extremity following procedure. The patient tolerated procedure well, carefully escorted to recovery room in stable condition. No apparent complications. After meeting discharge criteria, the patient discharged home. ��������������������������������������������� ���������������������������������������� By: ��������������������������������������������� 0900 [id number] Kvng Mcwilliams DO /nt
[2018-12-03 10:02] VITALS: BP 156/101
--- NOTE | 2018-12-03 10:08 | NUR ---
Pain Clinic Assessment: 1. History of Osteoarthritis: YES History of Rheumatoid Arthritis: NO 2. Height: 4 ft. 10 in. 147.3 cm. Weight: 162.0 lb. oz. 73.483 kg. Patient's BMI: 33.9 3. Vital Signs: BP: 156/101 Pulse: 81 Resp: 18 Temp: 02 Sat: 96 ECG Mon: 4. Pain Intensity: 7 5. Fall Risk: Dizziness: Y Needs help standing or walking: N Fallen in the last 3 months: N Fall risk comments: VERTIGO WHEN TURNS OVER IN BED 6. Patient on Blood Thinner: None 7. History of Hypertension: N 8. Opioid Therapy greater than 6 weeks: N Opiate Contract Signed: 9. Risk Assessment Tool Provided: LOW RISK 0/3 10. Functional Assessment Tool: 41/70 11. Recreational Drug Use: Never Drug Type: Tobacco Use: Never Smoker Tobacco Type: Amount or Packs/day: How Many Years: Alcohol Use: No Frequency: Quant:
== END | disposition home or self-care (01) ==
LOC: PAIN 06:52
DX: M51.16 Intervertebral disc disorders with radiculopathy, lumbar region (principal); M47.27 Other spondylosis with radiculopathy, lumbosacral region; I10 Essential (primary) hypertension; G89.29 Other chronic pain; Z68.33 Body mass index [BMI] 33.0-33.9, adult; Z88.0 Allergy status to penicillin; Z88.8 Allergy status to other drugs, medicaments and biological substances; Z79.899 Other long term (current) drug therapy; M54.5 Low back pain

== ENCOUNTER → 2019-04-22 | Outpatient (CLI) | payer OTHER, BC | LOC: NUC 10:28 | DX: M81.0 Age-related osteoporosis without current pathological fracture (principal); M85.89 Other specified disorders of bone density and structure, multiple sites; N91.2 Amenorrhea, unspecified; Z78.0 Asymptomatic menopausal state ==

== ENCOUNTER → 2019-06-13 | Outpatient (CLI) | payer OTHER, BC ==
[~2019-06-13] MED LIST changes: +SHINGRIX V50 MCG/0.5 IM
== END ==
LOC: MRI 12:10
DX: M51.37 Other intervertebral disc degeneration, lumbosacral region (principal); M43.16 Spondylolisthesis, lumbar region; M51.46 Schmorl's nodes, lumbar region; M48.061 Spinal stenosis, lumbar region without neurogenic claudication

== ENCOUNTER → 2019-06-17 | Outpatient (CLI) | payer OTHER, BC ==
[~2019-06-17] VITALS: Ht 147.3 cm; Wt 67.9 kg
[2019-06-17 12:55] VITALS: BP 156/78
--- NOTE | 2019-06-17 13:11 | NUR ---
Pain Clinic Assessment: 1. History of Osteoarthritis: YES History of Rheumatoid Arthritis: NO 2. Height: 4 ft. 10 in. 147.3 cm. Weight: 149.6 lb. oz. 67.858 kg. Patient's BMI: 31.3 3. Vital Signs: BP: 156/78 Pulse: 74 Resp: 18 Temp: 02 Sat: 99 ECG Mon: 4. Pain Intensity: 5 5. Fall Risk: Dizziness: N Needs help standing or walking: Y Fallen in the last 3 months: N Fall risk comments: VERTIGO WHEN TURNS OVER IN BED 6. Patient on Blood Thinner: None 7. History of Hypertension: N 8. Opioid Therapy greater than 6 weeks: N Opiate Contract Signed: 9. Risk Assessment Tool Provided: LOW RISK 0/3 10. Functional Assessment Tool: 41/70 11. Recreational Drug Use: Never Drug Type: Tobacco Use: Never Smoker Tobacco Type: Amount or Packs/day: How Many Years: Alcohol Use: No Frequency: Quant:
--- NOTE | 2019-06-24 12:48 | HPC ---
[facility] [address] [place] [address] PAIN MANAGEMENT CONSULTATION Name: ROSALIND GUERIN I Room #: JENELLE QUIROZ MNoble.#: [id number] Admission: 06/17/19 Attend Phys: Kvng Mcwilliams DO Discharge: Date of : 39 Report #: [id number] THIS REPORT FOR: //name// CC: Kvng Avalos MD DATE OF SERVICE: 06/17/2019 REFERRING PHYSICIAN: Luz Ferrari PRIMARY CARE PHYSICIAN: Naun Avalos MD CHIEF COMPLAINT: Left hip pain. HISTORY OF PRESENT ILLNESS: As you know, the patient is an 79-year-old female who returns today in followup visit with ongoing left hip pain. She has been evaluated from orthopedic standpoint and sent for physical therapy. The patient's gait is quite antalgic. There is actually an abnormal motion during her gait involving that left hip. There is noted a "popping" sensation when the patient moves. She sustains a near fall after taking a couple of the first steps. She returns today in followup visit with concerns of this ongoing left hip pain. She denies injury or trauma to the area that may have led to symptom continuation, though she does report that while she was doing some activity, she felt a popping sensation that has led to this issue, this was months ago. There has been nothing new. She returns today in followup visit with concerns of this ongoing left hip and buttock symptoms. ALLERGIES: PENICILLIN AND DIPHENHYDRAMINE. CURRENT MEDICATIONS: Meloxicam, ascorbic acid, levothyroxine, estradiol, spironolactone, omeprazole, chlorphentermine, vitamin B complex and cholecalciferol. SOCIAL HISTORY: The patient denies tobacco, alcohol, IV or illicit drug use. She is retired, retired years ago, accompanied by her present in room today. IMAGING: No new imaging available. PQRS: The patient has known arthritic changes of the lumbar spine, bilateral hips, bilateral knees and bilateral feet. She is placing pain intensity today at around 5/10. She is a fall risk, but has not had a fall in the last 3 months. She is utilizing ambulatory devices today a cane. No blood thinners. [address] [address] PAIN MANAGEMENT CONSULTATION Name: ROSALIND GUERIN I Room #: REG [facility].#: [id number] Admission: 06/17/19 Attend Phys: Kvng Mcwilliams DO Discharge: Date of : 39 Report #: [id number] She is treated for hypertension. She is on no opioids. She has a low opiate addiction potential. Pain impact score 41/70, moderate to severe interference of daily activities secondary to pain. PHYSICAL EXAMINATION: VITAL SIGNS: Blood pressure 156/78, pulse 74, respiratory rate 18 and unlabored. The patient is 99% on room air. Height 4 feet 10 inches tall, weight 149.6 pounds, BMI calculated 31.3. GENERAL: Well-developed, well-nourished, well-hydrated 79-year-old female appearing stated age, pain is rated around 5/10. HEENT: Normocephalic, atraumatic. Pupils equal, round, reactive to light. Extraocular muscles are intact. Sclerae are nonicteric without injection. NEUROLOGIC: Cranial nerves 2-12 are grossly intact. Speech fluent. The patient deemed an excellent historian. EXTREMITIES: Show no clubbing, no cyanosis, no edema. MUSCULOSKELETAL: The patient has gait changes on the left when compared to the right. There is a definitive strength loss on the left when compared to the right, mainly involving the gluteal muscles. She has no radicular component to her symptoms. Seated straight leg raising negative. Supine straight leg raising negative. Danya's is positive on the left. Modified Gaenslen's positive for some axial low back pain. ASSESSMENT: 1. Left hip pain. 2. Left pelvic pain. 3. Antalgic left gait. 4. History of chronic lumbar radiculopathy without radicular component. PLAN: 1. The patient returns today in followup visit with what appears to be an intrinsic hip pathology causing gait disturbance. The patient and I discussed this at length today. She has been seen by Orthopedics and they sent her for x-ray imaging. Apparently, the physician did not even take the time according to the patient to evaluate her gait. There is a significant gait abnormality that is quite concerning. I have recommended the patient undergo further imaging to determine the source of his gait abnormality. The patient reports that her pain and gait disturbance began directly after she felt a tearing and popping sensation in the left gluteal area. There is no radiation of symptoms in a radicular fashion that would be concerning for radiculopathy at this point. Given this unusual gait and the sensations the patient is experiencing as well as the palpatory changes when she is moving, I recommend further imaging. The patient was sent for MRI of the left hip and pelvis as quickly as possible. Prescription was provided for this imaging today without contrast. 2. The patient will be establishing an appointment to return to our clinic once she has completed this imaging, so we can review the findings and determine a course of treatment. We are hopeful the patient will have this MRI as quickly [address] [address] PAIN MANAGEMENT CONSULTATION Name: ROSALIND GUERIN I Room #: JENELLE QUIROZ Vadim#: [id number] Admission: 06/17/19 Attend Phys: Kvng Mcwilliams DO Discharge: Date of : 39 Report #: [id number] as possible. We will review those findings and then schedule to have her seen by the appropriate physician based on that pathology. 3. The patient was provided refill prescription of meloxicam 7.5 mg 1 tab p.o. b.i.d.; she was given #60 tablets with 11 refills 1-year worth of medication. 4. We will see the patient back in followup visit once she has completed the MRI of the left hip and pelvis area. <ELECTRONICALLY SIGNED> By: Kvng Mcwilliams DO 06/24/19 1248 0823 0054 Kvng Mcwilliams DO /nt
== END ==
LOC: PAIN 04-29 11:54
DX: M54.16 Radiculopathy, lumbar region (principal); R10.2 Pelvic and perineal pain; M25.552 Pain in left hip; Z88.0 Allergy status to penicillin; Z79.899 Other long term (current) drug therapy

== ENCOUNTER → 2019-06-23 | Outpatient (CLI) | payer OTHER, BC | LOC: MRI 12:37 | DX: S76.012A Strain of muscle, fascia and tendon of left hip, initial encounter (principal); M16.12 Unilateral primary osteoarthritis, left hip; M25.752 Osteophyte, left hip; M47.816 Spondylosis without myelopathy or radiculopathy, lumbar region; M48.061 Spinal stenosis, lumbar region without neurogenic claudication; M51.86 Other intervertebral disc disorders, lumbar region; M51.87 Other intervertebral disc disorders, lumbosacral region; X58.XXXA Exposure to other specified factors, initial encounter; Y93.89 Activity, other specified; Y92.89 Other specified places as the place of occurrence of the external cause; Y99.8 Other external cause status ==

== ENCOUNTER → 2019-07-01 | Outpatient (CLI) | payer OTHER, BC | LOC: RAD 11:45 | DX: Z12.31 Encounter for screening mammogram for malignant neoplasm of breast (principal) ==

== ENCOUNTER → 2019-08-05 | Outpatient (CLI) | payer OTHER, BC ==
[~2019-08-05] VITALS: Ht 147.3 cm; Wt 67.8 kg
[~2019-08-05] MED LIST changes: +NEURONTIN 300M300 M2 PO
[2019-08-05 13:10] VITALS: BP 164/93
--- NOTE | 2019-08-27 12:54 | HPC ---
[facility] [address] [place] [address] PAIN MANAGEMENT CONSULTATION Name: ROSALIND GUERIN I Room #: REG [facility] M.R.#: [id number] Admission: 08/05/19 Attend Phys: Kvng Mcwilliams DO Discharge: Date of : 39 Report #: [id number] THIS REPORT FOR: //name// CC: Kvng Avalos MD DATE OF SERVICE: 08/05/2019 CHIEF COMPLAINT: Back pain and post-surgical pain. HISTORY OF PRESENT ILLNESS: As you know, the patient is a very pleasant 79-year-old female who returns today in followup visit for adjustments in medication management to address any residual pain she is experiencing from her axial back and prior hip surgery. She reports pain levels today about 5/10. She denies new injury or trauma, but states that she is still recovering from the surgery of her hip. She returns today for adjustments in medication management to address any residual pain she is experiencing today. ALLERGIES: PENICILLIN, FENOFIBRATE, DIPHENHYDRAMINE. CURRENT MEDICATIONS: Gabapentin 300 mg b.i.d., meloxicam 7.5 mg twice a day, tramadol 50 mg every 8 hours p.r.n. for pain, ascorbic acid 500 mg per day, levothyroxine 50 mcg per day, cholecalciferol 1000 units 2 tabs per day, vitamin B complex 100 mg once a day, Prilosec 20 mg per day, spironolactone 25 mg per day, Estrace 1 mg per day. SOCIAL HISTORY: The patient denies tobacco, alcohol, IV or illicit drug use. She is accompanied by her , present in room today. IMAGING: No new imaging available. PQRS: The patient has known arthritic changes of bilateral hips, status post total hip arthroplasty, bilateral knees and hands. No rheumatoid arthritis. She is placing pain intensity at 5/10. She is a fall risk, but has not had a fall in last 3 months. She does report some vertigo when turning over in bed or making a rapid movement that leads her to be a risk for fall. She is not on blood thinners, but is treated for hypertension. She is not on chronic opioid. She has a low opioid addiction potential and pain impact score rated today 41/70, moderate interference of daily activities secondary to pain. PHYSICAL EXAMINATION: VITAL SIGNS: Blood pressure 164/93, pulse 70, respiratory rate 16 and unlabored. The patient is 100% on room air. Height 4 feet 10 inches tall, weighs 149.4 pounds, BMI calculated 31.2[place] [address] PAIN MANAGEMENT CONSULTATION Name: ROSALIND GUERIN I Room #: REG [facility] Vadim#: [id number] Admission: 08/05/19 Attend Phys: Kvng Mcwilliams DO Discharge: Date of : 39 Report #: [id number] GENERAL: Well-developed, well-nourished, well-hydrated 79-year-old female appearing stated age, pain is rated right today at around 5/10. HEENT: Normocephalic, atraumatic. Pupils are equal, round, reactive to light. EXTREMITIES: Show no clubbing, no cyanosis, and no edema. MUSCULOSKELETAL: Gait has improved slightly from our previous evaluation. She still is favoring the total hip arthroplasty, but this has improved significantly. Muscle bulk and tone appears symmetrical in comparing left lower extremity to right. Seated straight leg raising negative. Supine straight leg raising negative. Danya's test remains positive. Modified Gaenslen's positive for some axial low back pain. Ankle clonus negative. Babinski is negative. ASSESSMENT: 1. Osteoarthritis of the left hip, status post total hip arthroplasty. 2. Mildly antalgic left gait. 3. Chronic lumbar radiculopathy. 4. Lumbosacral spondylosis with radiculopathy. PLAN: 1. The patient returns today in followup visit where we have discussed at length the healing process that will be necessary after undergoing a total hip arthroplasty. This could take anywhere from 4 weeks out to as much as 4 months. The patient is still within that timeframe and is improving slowly. She continues to experience some axial back pain issues, which I believe are facet arthropathy related today. We will make adjustments in her medication management by increasing her tramadol dose in hopes of improving pain. The patient is amenable to undergo increase in this medication. 2. The patient was provided prescription of tramadol 50 mg dose 1 tab p.o. q.i.d. given the patient #120 tablets, releasing today. The patient was advised to take the medication as directed, not to take the medication prophylactically. If she notes side effects of sleepiness, disorientation, confusion and mental slowing discontinue medication and call for further instructions. 3. We will see the patient back in followup visit for possible interventional treatments. She has done very well with her previous injections in the lumbar spine and if this is necessary would be available to see the patient back; otherwise, we will see her back for medication management on preapproved appointment times. We are pleased to see the patient is doing fairly well at this time status post total hip arthroplasty. She will be following up with her orthopedic surgeon. <ELECTRONICALLY SIGNED> By: Kvng Mcwilliams DO 08/27/19 1254 [id number] 0832 Kvng Mcwilliams DO /gale
== END ==
LOC: PAIN 10:48
DX: M47.27 Other spondylosis with radiculopathy, lumbosacral region (principal); M16.12 Unilateral primary osteoarthritis, left hip

== ENCOUNTER 2019-10-01 05:50 | Inpatient (IN) | payer OTHER, BC ==
[~2019-10-01] VITALS: Ht 147.3 cm; Wt 65.8 kg
[~2019-10-01 05:50] MED LIST changes: +CALCIUM CITRAT1 EA19 PO; +CLOTRIMAZOLE-BE15 GM; +FUROSEMIDE 40 M40 MG PO; +LEVO-T50 MCG PO; +PHILLIPS500 MG PO
[2019-10-01 06:21] VITALS: BP 171/64
[2019-10-01 07:22] LABS: CALCIUM 8.1 mg/dL (8.5-10.1); CREATININE 0.8 mg/dL (0.6-1.0)
[2019-10-01 07:27] LABS: POTASSIUM 2.8 mmol/L (3.5-5.1)
[2019-10-01 08:38] LABS: CREATININE 0.7 mg/dL (0.6-1.0); POTASSIUM 3.6 mmol/L (3.5-5.1)
--- NOTE | 2019-10-01 11:15 | O ---
[facility] [address] [place] [address] OPERATIVE REPORT Name: ROSALIND GUERIN I Room #: 150-2 [facility] M.R.#: [id number] Admission: 10/01/19 Attend Phys: Manpreet Goodwin MD Discharge: Date of : 39 Report #: [id number] THIS REPORT FOR: cc: Naun Avalos,Manpreet Rdz MD ~ CC: Manpreet Avalos DATE OF SERVICE: 10/01/2019 SERVICE: Orthopedics. FACILITY: [facility]. SURGEON: Manpreet Goodwin MD CNC SERVICE ENGINEER: Randa Carver NP. INDICATION FOR CNC SERVICE ENGINEER: Extremity positioning, retraction, suture management, assistance with repair and closure. PREOPERATIVE DIAGNOSES: 1. Left hip pain. 2. Left hip Trendelenburg gait. 3. 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 4. Left hip abductor musculature atrophy. POSTOPERATIVE DIAGNOSES: 1. Left hip pain. 2. Left hip Trendelenburg gait. 3. 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 4. Left hip abductor musculature atrophy. 5. Left hip trochanteric bursitis. PROCEDURE: Left hip open abductor tendon repair with trochanteric bursectomy. COMPLICATIONS: None. DRAINS: None. SPECIMENS: None. INDICATIONS: The patient is an 79-year-old female with history of persistent [facility] [place] [address] OPERATIVE REPORT Name: ROSALIND GUERIN I Room #: 150-2 [facility] M.R.#: [id number] Admission: 10/01/19 Attend Phys: Manpreet Goodwin MD Discharge: Date of : 39 Report #: [id number] progressive left hip dysfunction. She had a dysfunctional gait. She had pain. She had acute on chronic type of injury with painful pop back in January that was resulting in progressive dysfunction. Imaging was consistent with fatty atrophy of the abductor musculature indicating a chronic issue, but she also had significant pain. Risks, benefits, alternatives and indications of surgical treatment were discussed with her in detail preoperatively. Risks include, but not limited to pain, bleeding, infection, injury to nerves or blood vessels, persistent pain despite surgical intervention, failure of any repairs, progression of any degenerative changes as well as need for further surgery and complications related to anesthesia such as stroke, heart attack, pulmonary complications, thromboembolic disease and . Despite these risks, she wished to proceed. PROCEDURE IN DETAIL: After left lower extremity was correctly identified in preoperative holding area as the operative extremity, the patient was taken to the operating room where general anesthesia was induced without complication. She was padded appropriately as she was turned into lateral decubitus position with the left side up, right side down. Prophylactic antibiotics administered at appropriate time. Left leg was prepped and draped in standard sterile fashion. Timeout procedure performed. Longitudinal incision was made over the trochanter. Dissection was taken down to the fascia, which was then incised and then retracted with a Charnley retractor. This allowed exposure of the gluteus medius and minimus muscle bellies and tendons and the trochanter. There was a complete avulsion of the tendon with a bald appearing tendon and had some sclerosis and osteophytes. The trochanteric bursa was evacuated and removed. There was quite a bit of adhesions and the tissue quality overall was poor with lots of fatty infiltration. The trochanter was then prepared with a rongeur and then an osteotome to fish scale the lateral cortex to create a bleeding surface and then labral tape was used to perform a total of 2 modified Caney type investing suture was running anterior distal proximally, then posteriorly and then distally again with the first one and then in a similar fashion with the second one in a slightly different tissue plane with the sutures exiting over the top, so they would laid down over the top of the abductor repair. [employer] ReelX anchors were then used in an offset position to do a double row type of repair and then the #1 suture contained within the anchor was used to perform box suture around the repair in a [place] type fashion x 2. This provided good coverage of the trochanter. Note that during passage of the primary sutures, several of the suture passed is completely pulled through the muscle as it was fully avulsed and poor tissue quality, particularly proximal and posterior, the more anterior tissue was a little better as was the posterior and distal tissue, so we focused the primary portion of the repair reinforcing against these healthier areas. The wound was then copiously irrigated. A gram of vancomycin powder was placed. The fascial layer was closed with 0 Vicryl suture. The fat layer was closed with 2-0 Vicryl. The skin was closed with 2-0 Vicryl followed [facility] [address] [place] [address] OPERATIVE REPORT Name: ROSALIND GUERIN Tim Room #: 150-2 [facility].R.#: [id number] Admission: 10/01/19 Attend Phys: Manpreet Goodwin MD Discharge: Date of : 39 Report #: [id number] by 3-0 Monocryl and Dermabond. Sterile dressing was applied. The patient was awakened from anesthesia and taken to recovery room in stable condition. No complications. All counts correct. <ELECTRONICALLY SIGNED> By: Manpreet Goodwin MD 10/01/19 1115 [id number] 0928 Manpreet Goodwin MD /nt
[2019-10-01 15:50] VITALS: BP 157/59
--- NOTE | 2019-10-01 19:48 | NUR ---
PT ADMITTED FROM PACU TO 448 FOR OBSERVATION. A&OX4. L HIP WITH AQUACELL DRSG C/D/I. IV INTACT IN R HAND. ORIENTED PT TO ROOM/ CALL LIGHT. SPOUSE AT THE BEDSIDE.
[2019-10-01 19:57] VITALS: BP 134/57
[2019-10-02 00:13] VITALS: BP 127/49
[2019-10-02 04:53] VITALS: BP 122/42
--- NOTE | 2019-10-02 06:37 | NUR ---
assumed care of pt @1900 PT ASSESSED AT START OF SHIFT. A&OX4. IV INTACT AND ABX GIVEN. AQUACEL DRESSING INTACT IN LFT HIP. PAIN MEDS GIVEN X2 THIS SHIFT TOLERATING PAIN WELL. PT UP WITH ASSITX1 TO BSC. FALL PREC IN PLACE AND CALL LIGHT IN REACH WILL CONT WITH POC TILL EOS.
[2019-10-02 08:39] VITALS: BP 129/50
--- NOTE | 2019-10-02 10:20 | NUR ---
per bedside nurse, pt will possible be dc today, already has walker and should be no needs at dc. will cont following as needed for dc needs.
--- NOTE | 2019-10-02 16:14 | NUR ---
ASSESSMENT-PT LIVES AT HOME WITH HER WHO USES A CANE/CHAIR TO GET AROUND BECAUSE HE CAN ONLY WALK SHORT DISTANCES. PT HAS BEEN USING A ROLLER WALKER TO GET AROUND AND DOES HER OWN ADLS. THEY ASSIST EACH OTHER WITH THE LAUNDRY AND THEY PURCHASE PREPARED MEALS, DO SIMPLE COOKING OR GO TO [facility] FOR MEALS. THEY HAVE A DTR AND [employer]AND[employer] IN THE AREA THAT ASSIST NEEDED. [employer] HELPS WITH THE CLEANING. PT WILL NEED SOME REHAB ONCE MEDICALLY STABLE. SHE HAS BEEN TO [facility] IN THE PAST AND WOULD LIKE TO RETRUN THERE AND WOULD LIKE A PVT IF POSSIBLE. ASKED DC PLNNER TO FAX REFERRAL TO [facility] FOR REHAB. FOLLOWING TO ASSIST WITH DC PLANNING. THEY HAVE ANOTHER DTR THAT LIVES IN [place] AND SHE IS WORKING ON FINISHING HER BSN. DTR POWER SAYS TO TEXT HER IF NEEDED BECAUSE CELL SERVICE IN NOT GOOD WHERE THEY LIVE SO CALLS DO NOT ALWAYS GO THRU.
--- NOTE | 2019-10-02 17:40 | NUR ---
FAXED REFERRAL TO [facility] FOR SKILLED STAY RECEIVED CONFIRMATION AND LEFT MSG WITH [facility] IN ADM TO REVIEW AND POSS DC OVER WEEKEND. DP TO FOLLOW
--- NOTE | 2019-10-02 18:44 | NUR ---
VSS-AFEBRILE. LUNGS CLEAR-ROOM AIR. PT/OT TODAY, PATIENT DECIDED TO GO TO REHAB FOR A FEW DAYS TO GAIN STREGTH. LEFT HIP DRSG DRY AND INTACT. PAIN WELL CONTROLLED WITH PO PAIN MEDICATIONS. CALLS APPROPRIATELY FOR ANY NEEDED ASSISTANCE.
[2019-10-02 19:33] VITALS: BP 146/56
--- NOTE | 2019-10-03 03:08 | NUR ---
ASSUMED CARE FROM DAY SHIFT,PT RESTING IN BED ASSESSMENT COMPLETED PAIN MEDICATION GIVEN AT HS , LEFT DRESSING DRY AND INTACT PT UP TO BATHRROM WITH ASSIST OF ONE.PT RESTED WELL THROUGHOUT HOURLY ROUNDS, WILL CONITNUE WITH CURRENT PLAN OF CARE, AND WILL REPORT CHANGES OR ABNORMAL FINDINGS.
[2019-10-03 03:24] VITALS: BP 133/54
[2019-10-03 07:35] VITALS: BP 145/51
[2019-10-03 17:06] VITALS: BP 137/30
--- NOTE | 2019-10-03 17:11 | NUR ---
ANTICIPATED DC SUN OR MON TO BOP PHONE: FAX CALL FACILITY TO ARRANGE TRANSPORT.
[2019-10-03 19:04] VITALS: BP 155/49
--- NOTE | 2019-10-03 19:55 | NUR ---
1900 ASSUMED CARE OF PT AFTER BEDSIDE REPORT FROM [place], 1944 ASSESSMENT COMPLETED AND ICE PACKS, SCDS IN PLACE, PT RESTING WITH NO S/SX OF ANXIETY AND STATES PAIN IS OK AFTER REPOSITIONING. FALL PRECAUTIONS IN PLACE, PT ENCOURAGED TO COUGH AND DEEP BREATHE, WILL CONTINUE WITH HOURLY ROUNDING.
[2019-10-04 05:20] VITALS: BP 142/45
[2019-10-04 12:07] VITALS: BP 141/50
--- NOTE | 2019-10-04 16:12 | NUR ---
VSS-AFEBRILE. LUNGS CLEAR-ROOM AIR. LEFT HIP PAIN WELL CONTROLLED WITH PO PAIN MEDICATION. OOB WITH PT/OT-TOLERATED WELL. HIP DRESSING INTACT AND WITH NO S/S OF DRAINAGE. FALL PRECATIONS IN PLACE, CALLS APPROPRIATELY FOR ANY NEEDED ASSISTANCE.
[2019-10-04 19:11] VITALS: BP 133/62
[2019-10-04 19:15] VITALS: BP 138/53
--- NOTE | 2019-10-04 23:44 | NUR ---
1910 ASSUMED CARE OF PT AFTER BEDSIDE REPORT. 2009 ASSESSMENT COMPLETED, PT IN BED UP TO COMMODE WITH STANDBY ASSIST STATES PAIN IS UNDER CONTROL AT THIS TIME, BANDAGE C/D/I, PT TURNING SELF IN BED, ENCOURAGED TO COUGH AND DEEP BREATHE, SCDS IN PLACE WILL CONTINUE WITH HOURLY ROUNDING.
[2019-10-05 08:29] VITALS: BP 123/56
[2019-10-05 11:12] VITALS: BP 146/50
--- NOTE | 2019-10-05 11:33 | NUR ---
PT CARE ASSUMED AT 0700. A&Ox4. PT IS UP WITH A WALKER WITH 30 WEIGHT LIMIT ON SURGICAL SIGHT. PT TRANSFERRED TO 406 SS. 1-2L O2 OVER NIGHT NEEDED. WALKER IN ROOM IS THE PT OWN WALKER. PT WAITING FOR AN OPEN BED AT [facility]. PAIN MANAGED WITH PAIN MEDICATION. IV IS PATENT WITH NO REDNESS OR EDEMA. AND SALINE LOCKED. FALL PROTOCOL IN PLACE WITH CALL LIGHT IN PLACE.
--- NOTE | 2019-10-05 14:23 | NUR ---
PT TRANSFRERRED TO THE UNIT FROM [facility]. ORIENTED AND SETTLED IN. PT A&OX4 FAMILY CAME BY TO VISIT. PT UP WITH ASSISTX1 TO THE BATHROOM. AQUACEL DRESSING IN LFT HIP INTACT. FALL PREC IN PLACE AND WILL CONT TO MONITOR.
[2019-10-05 14:58] VITALS: BP 147/78
--- NOTE | 2019-10-05 19:06 | NUR ---
ASSUMED PT CARE AROUND 1500. AXOX4. L HIP DRESSING CDI. VSS. NO S/S ACUTE DISTRESS NOTED OR REPORTED AT THIS TIME. CARE TRANSFERRED TO INCOMING RN AT THIS TIME.
[2019-10-05 19:29] VITALS: BP 135/52
--- NOTE | 2019-10-06 05:01 | NUR ---
PATIENT ALERT AND ORIENTED X4. COOPERATIVE WITH CARE. DRESSING TO LEFT HIP DRY AND INTACT. MEDICATED FOR PAIN X1 WITH GOOD RESULTS PATIENT HAS SLEPT THROUGHOUT THE NIGHT. POSSIBILITY OF REHAB AT [facility] [place] WITH DISCHARGE TOMORROW. UP TO BSC WITH ONE ASSIST AND WALKER. WILL MONITOR.
[2019-10-06 08:16] VITALS: BP 147/68
--- NOTE | 2019-10-06 12:45 | NUR ---
DISCHARGE ORDERS COMPLETED AND FAXED TO [facility]. CHART COPY COMPLETED PER FUNERAL SALES MANAGER. TRANSPORTATION ARRANGED PER [facility], 1300 HOURS. UNIT RN NOTIFIED, CONTACT NUMBER FOR REPORT PROVIDED. UNIT SW AWARE.
--- NOTE | 2019-10-06 14:16 | NUR ---
ASSUMED PATIENT CARE AT 0700. PATIENT IS AOX4. PATIENT IS UP WITH MINIMUM ASSIST TODAY AND TOLERATING THE 30 POUND PARTIAL WEIGHT WELL USING THE WALKER. PATIENT DID C/O PAIN, PRN PAIN MEDS GIVEN. PATIENT UP TO BSC WITHOUT ANY ISSUES. PATIENT RESTING MOST OF THE DAY UNTIL FAMILY SHOWED UP TO HELP WITH D/C. PATIENT D/C TO [facility], REPORT GIVEN TO MIGNON AT [phone]. FALL PRECAUTIONS IN PLACE, CALL LIGHT WITHIN REACH. PATIENT DOES CALL OUT FOR HELP WHEN NEEDED.
--- NOTE | 2019-10-06 15:09 | NUR ---
I AGREE WITH NURSING ASSESSMENT AND NURSING NOTE DONE BY JB/CYRUS.
--- NOTE | 2019-10-06 17:27 | NUR ---
DISCHARGE NOTE: SW reviewed chart and spoke with nursing and attending physician. Pt was transferred to [facility] and is medically stable for discharge to [facility] today. SW contacted attending physician to clarify discharge disposition: inpt acute rehab v. SNF. Physician states pt is stable for discharge to SNF. SW met with pt at bedside to provide update. Pt is aware and in agreement with discharge plan. Wheelchair van transportation scheduled for 1300 per facility's arrangements. SW updated pt at bedside. Pt states she will notify her family. Chart copy requested. Nursing provided with number to call report. tool and production planner faxed finalized discharge orders/summary to [facility]. No additional SW needs identified at this time, but is available to assist should needs arise.
== END 2019-10-06 13:00 | DRG 502 ==
LOC: OR 05:50 → TBA 05:50 → OR 09:57 → 4S 12:27 → OR 12:57 → 4N 10-05 10:56
PROVIDERS: Student in an Organized Health Care Education/Training Program; ADMIT Orthopaedic Surgery Sports Medicine
PROC: 0MTM0ZZ Resection of Left Hip Bursa and Ligament, Open Approach (ICD-10-PCS; principal; 2019-10-01)
PROC: 0LQK0ZZ Repair Left Hip Tendon, Open Approach (ICD-10-PCS; 2019-10-01)
DX: S76.012A Strain of muscle, fascia and tendon of left hip, initial encounter (principal); M70.62 Trochanteric bursitis, left hip; X58.XXXA Exposure to other specified factors, initial encounter; Z96.653 Presence of artificial knee joint, bilateral; Z96.641 Presence of right artificial hip joint; M62.58 Muscle wasting and atrophy, not elsewhere classified, other site; E03.9 Hypothyroidism, unspecified; M19.012 Primary osteoarthritis, left shoulder; Y93.89 Activity, other specified; Y92.89 Other specified places as the place of occurrence of the external cause; Y99.8 Other external cause status; Z88.0 Allergy status to penicillin; Z88.8 Allergy status to other drugs, medicaments and biological substances; Z91.041 Radiographic dye allergy status; Z90.710 Acquired absence of both cervix and uterus; Z98.42 Cataract extraction status, left eye; Z98.41 Cataract extraction status, right eye
CPT/HCPCS: 10102; 10790; 50010; 50101; 50414; 52256; 53078; 54118; 55430; 56526; 56527; 56528; 57103; 62110; 62900; 70005

== ENCOUNTER → 2020-01-27 | Outpatient (CLI) | payer OTHER, BC ==
[~2020-01-27] VITALS: Ht 147.3 cm; Wt 67.6 kg
[2020-01-27 08:27] VITALS: BP 173/70
--- NOTE | 2020-01-27 08:40 | NUR ---
Pain Clinic Assessment: 1. History of Osteoarthritis: SPINE History of Rheumatoid Arthritis: DENIES 2. Height: 4 ft. 10 in. 147.3 cm. Weight: 149.0 lb. oz. 67.586 kg. Patient's BMI: 31.1 3. Vital Signs: BP: 173/70 Pulse: 82 Resp: 20 Temp: 02 Sat: 98 ECG Mon: 4. Pain Intensity: 5 5. Fall Risk: Dizziness: N Needs help standing or walking: Y Fallen in the last 3 months: N Fall risk comments: VERTIGO WHEN TURNS OVER IN BED 6. Patient on Blood Thinner: None 7. History of Hypertension: N 8. Opioid Therapy greater than 6 weeks: N Opiate Contract Signed: 9. Risk Assessment Tool Provided: LOW RISK 0/3 10. Functional Assessment Tool: 11. Recreational Drug Use: Never Drug Type: Tobacco Use: Never Smoker Tobacco Type: Amount or Packs/day: How Many Years: Alcohol Use: No Frequency: Quant:
--- NOTE | 2020-01-28 13:15 | HPC ---
[facility] [address] [place] [address] PAIN MANAGEMENT CONSULTATION Name: ROSALIND GUERIN I Room #: REG GABRIELLA M.Hallie.#: [id number] Admission: 01/27/20 Attend Phys: Kvng Mcwilliams DO Discharge: Date of : 39 Report #: [id number] THIS REPORT FOR: cc: Nanu Avalos Steven F. DO Johnson, James E. DO ~ DATE OF SERVICE: 01/27/2020 PRIMARY CARE PHYSICIAN: Naun Avalos MD CHIEF COMPLAINT: Low back pain. HISTORY OF PRESENT ILLNESS: As you know, the patient is an 80-year-old female who returns today in followup visit with continued low back pain, lower extremity pain with paresthesias. She returns today to undergo lumbar epidural injection under fluoroscopic guidance. The patient continues to recover from her hip surgery and appears to be doing better from that standpoint. She states that changes in her gait due to the surgery have exacerbated her chronic lumbar radicular symptoms. She returns today in followup visit to undergo next in the series and received refill of her tramadol. She is denying side effects of the tramadol such as somnolence, decreased mental acuity, disorientation, confusion, mental slowing and constipation. ALLERGIES: PENICILLIN, FENOFIBRATE, DIPHENHYDRAMINE. CURRENT MEDICATIONS: Gabapentin, meloxicam, tramadol, ascorbic acid, levothyroxine, cholecalciferol, vitamin B complex, Prilosec, spironolactone, Estrace. SOCIAL HISTORY: The patient denies tobacco, alcohol, IV or illicit drug use. She is retired. She is accompanied by her who is present today. IMAGING: No new imaging available. PQRS: The patient has known arthritic changes of bilateral hips, status post total hip arthroplasty, bilateral knees, bilateral hands and lumbar spine. No rheumatoid arthritis. She is placing current pain score today at around 5/10. She has not had a fall in the last 3 months, but there is a fall risk. She utilizes ambulatory devices such as cane for balance. She is not on blood thinners, not treated for hypertension. She is on chronic opioids with low opioid addiction potential. Pain impact score, functional impact is 41/70. PHYSICAL EXAMINATION: VITAL SIGNS: Blood pressure 173/70, pulse 82, respiratory rate 20 and unlabored. The patient is 98% on room air. Height 4 feet 10 inches tall, [facility] [address] [place] [address] PAIN MANAGEMENT CONSULTATION Name: ROSALIND GUERIN I Room #: REG CLI [facility]#: [id number] Admission: 01/27/20 Attend Phys: Kvng Mcwilliams DO Discharge: Date of : 39 Report #: [id number] weight 149 pounds, BMI calculated 31.1. GENERAL: Well-developed, well-nourished, well-hydrated 80-year-old female appearing stated age, pain is rated today at 5/10. HEENT: Normocephalic, atraumatic. Pupils are equal, round, and reactive. Speech fluent. EXTREMITIES: Show no clubbing, no cyanosis, no edema. MUSCULOSKELETAL: Lower extremity strength appears symmetrical 5/5. Slight giveaway strength noted with hip flexion and extension due to hip pain status post surgery. Muscle bulk and tone appears symmetrical in comparing lower extremities. Seated straight leg raising is negative. Supine straight leg raising is negative. Danya's test is positive. Modified Gaenslen's positive for axial low back pain. ASSESSMENT: 1. Chronic lumbar radiculopathy. 2. Lumbosacral spondylosis with radiculopathy. 3. Continued left hip pain, status post surgery. 4. Antalgic gait. 5. Chronic intractable pain. PLAN: 1. The patient returns today in followup visit to undergo lumbar epidural injection under fluoroscopic guidance. She has noted excellent benefit with previous epidural injections, hopeful to see similar improvement today. She has been advised risks and benefits of the procedure, states understood and wished to proceed. 2. The patient was provided refill prescription of her tramadol 50 mg dose 1 tab p.o. q.i.d. p.r.n. pain. I have given the patient #120 tablets, no refills. The patient was advised to take the medication only when pain is intolerable, not to rely on the medication prophylactically. 3. We will see the patient back in followup visit on an as needed basis for possible next in the series of lumbar epidural injections. We are hopeful the patient will see good and prolonged benefit with today's procedure. PROCEDURE NOTE DESCRIPTION OF PROCEDURE: L5-S1 interlaminar epidural steroid injection under fluoroscopic guidance. After obtaining written consent, the patient was taken back to fluoroscopy suite, placed in prone position with pillow under abdomen to decrease lumbar lordosis. Skin overlying lumbosacral area then prepped and draped in aseptic fashion. The L5-S1 vertebral interspace was identified by AP fluoroscopy. Skin and subcutaneous tissue overlying target site injection anesthetized with 3 mL of 1% lidocaine. [address] [address] PAIN MANAGEMENT CONSULTATION Name: ROSALIND GUERIN I Room #: JENELLE Fierro#: [id number] Admission: 01/27/20 Attend Phys: Kvng Mcwilliams DO Discharge: Date of : 39 Report #: [id number] A 20-gauge 3-1/2 inch Tuohy needle was advanced under fluoroscopic guidance towards the epidural space using a paramedian approach. Epidural space was identified using loss of resistance to air technique. Due to a contrast allergy, no contrast agent was used in today's procedure. After negative aspiration for heme or cerebrospinal fluid, 5 mL of a solution containing 2 mL 40 mg per mL, 80 mg total triamcinolone along with 3 mL of lidocaine 1% injected slowly. Needle retracted chcf, flushed with 1 mL of 1% lidocaine and then removed. Sterile bandage was placed over injection site. There were no new motor deficits present in lower extremity following procedure. The patient tolerated procedure well, carefully escorted to recovery room in stable condition. No apparent complications. After meeting discharge criteria, the patient was discharged home. <ELECTRONICALLY SIGNED> By: Kvng Mcwilliams DO 01/28/20 1315 [id number] [id number] Kvng Mcwilliams DO /nt
== END | disposition home or self-care (01) ==
LOC: PAIN 06:48
PROVIDERS: ATTEND Anesthesiology Pain Medicine
DX: M47.27 Other spondylosis with radiculopathy, lumbosacral region (principal); G89.29 Other chronic pain; M25.552 Pain in left hip; M19.90 Unspecified osteoarthritis, unspecified site; Z98.890 Other specified postprocedural states; Z79.899 Other long term (current) drug therapy; Z88.0 Allergy status to penicillin; Z91.041 Radiographic dye allergy status

== ENCOUNTER 2020-06-18 22:07 | Inpatient (IN) | payer OTHER, BC ==
[~2020-06-18] VITALS: Ht 147.3 cm; Wt 66.2 kg
--- NOTE | ~2020-06-18 | HC ---
[facility] [place] [address] CONSULTATION Name: ROSALIND GUERIN I Room #: 216-P ADM IN M.R.#: [id number] Admission: 06/18/20 Attend Phys: Javier Bernard MD Discharge: Date of : 39 Report #: [id number] THIS REPORT FOR: cc: Naun Avalos,Naun Valle,Len Singh MD ~ DATE OF SERVICE: 06/19/2020 HISTORY OF PRESENT ILLNESS: This is an 80-year-old female patient who is not a very good historian. She said she had some numbness, so I got part of the history by reviewing the records in the computer, especially history and physical. She had some numbness on the left side including the face about 2-3 days' duration. She is not very certain about it. She first went to ____ and then she came here. She said her memory is not affected. She is complaining of some generalized weakness, which is difficult to determine. This is especially true because she has weakness on the left side and she can barely move her shoulder. REVIEW OF SYSTEMS: A 14-point review of system was carried out in this patient. She denies any eye, ENT, cardiac, respiratory, GI, , musculoskeletal, constitutional, dermatological, hematological, psychiatric, throat, allergic symptom associated with present symptomatology. PAST MEDICAL HISTORY: Negative for any stroke. FAMILY HISTORY: Positive for aneurysm in the father. SOCIAL HISTORY: She does not smoke or drink alcohol. PHYSICAL EXAMINATION: GENERAL: Indicates she is alert. She is oriented. She can follow simple commands. Her speech looks intact. NEUROLOGIC: Cranial nerve examination 2-12 looks unremarkable. She has weakness in the left shoulder and to some extent in the left leg, which is her baseline and it is difficult to tell, but her position sense is intact. Both plantars are mute. She has no cerebellar sign. She has no meningeal sign. Tone looks symmetrical. Reflexes appeared to be diminished in generalized fashion, but I do not know what her baseline is. CARDIAC: Appear unremarkable. LUNGS: No respiratory difficulty was noticed. Pulses are difficult to feel, but I think are palpable. VITAL SIGNS: Blood pressure is 143/70, respirations 18, pulse is 69, temperature is 98.3. [address] [address] CONSULTATION Name: ROSALIND GUERIN I Room #: 216-P [facility] IN .R.#: [id number] Admission: 06/18/20 Attend Phys: Javier Bernard MD Discharge: Date of : 39 Report #: [id number] LABORATORY DATA: White count is 7.9. Sodium is 136. Carotid Doppler is done, which showed no hemodynamically significant stenosis. IMPRESSION: I agree that the first step in this patient should be getting an MRI and MRA done. We will order that. She says there is no contraindication for the MRI. It looks like she had MRIs in the past here, shoulder and the lumbar spine, and I discussed those with her and that may be contributing to her symptoms because she does have severe stenosis of the spine and looks like she probably has seen orthopedic surgeon in the past. We will follow up after the MRI is done. Thank you very much for this referral and if you have any question, please feel free to contact me. By: 0837 0910 Len Meneses MD /nt
[2020-06-19] VITALS (9 sets, daily range): BP systolic 143–181; BP diastolic 70–90
[2020-06-19 00:34] LABS: HEMATOCRIT 43.2 % (37.0-47.0); HEMOGLOBIN 14.3 gm/dL (12.0-15.0); MCH 30.8 pg (26.0-34.0); MCV 93.1 fL (80.0-100.0); RBC 4.64 mil/uL (4.20-5.00); RDW 12.8 % (10.5-14.5); WBC 7.9 thou/uL (4.0-11.0)
[2020-06-19 00:44] LABS: CREATININE 0.7 mg/dL (0.6-1.0); MAGNESIUM 2.1 mg/dL (1.8-2.4); POTASSIUM 3.7 mmol/L (3.5-5.1)
[2020-06-19 00:49] LABS: CHOLESTEROL 217 mg/dL (<200); HDL CHOLESTEROL 60 mg/dL (>40); LDL CHOLESTEROL 137 mg/dL (<100); TC:HDL 3.6 Ratio (Not establshd); TRIGLYCERIDE 104 mg/dL (<150); VLDL 21 mg/dL (<40)
[2020-06-19 00:52] LABS: SERUM ASSESSMENT Clear
[2020-06-19] MEDS ORDERED: OMEPRAZOLE40 MG PO (02:44)
[2020-06-19] MEDS ORDERED: CLOTRIMAZOLE-BE15 GM TP (02:46)
[2020-06-19] MEDS ORDERED: PROCTOZONE-HC30 GM TOP (02:47)
--- NOTE | 2020-06-19 04:35 | NUR ---
[facility] with [facility]va, pt arrived on the floor around midnight, alert and orientedx4, sr with a bbb, nih scale initiated, scored a 2, c/o pain of a 8/10, pain meds given with relief, remains npo, speech consulted, denies chest pain or sob, asmission assessment completed and as charted, denies concerns at this time, sleeping will continue to monitor
[2020-06-19 10:11] LABS: BE(vivo) -0.7 mmol/L (-2 to +3); HCO3 22.9 mmol/L (22.0-26.0); PCO2 34.5 mmHg (35.0-45.0); PO2 78.9 mmHg (80.0-100.0); pH 7.439 (7.360-7.450); sO2 96.1 % (92.0-98.0)
--- NOTE | 2020-06-19 10:29 | NUR ---
ABG ORDERED IN ERROR.
--- NOTE | 2020-06-19 17:02 | NUR ---
PT CARE ASSUMED AT 0700. ASSESSMENT CHARTED. MEDICATION CHARTED. LAC IV. SWALLOW STUDY PERFORMED; PUREED HH/ NECTAR THICK LIQUIDS. SINUS RHYTHM WITH BUNDLE BRANCH BLOCK. NIH: 0. PILLS SHOULD BE CRUSHED AND PLACED IN APPLESAUCE/ PUDDING. LLE PAIN; KETOROLAC.
[2020-06-19 18:22] LABS: PROTIME 10.2 Seconds (9.3-11.4)
[2020-06-19 18:23] LABS: APTT 30.7 Seconds (24.5-32.8)
[2020-06-20] VITALS (8 sets, daily range): BP systolic 150–197; BP diastolic 67–92
[2020-06-20 00:31] LABS: GLYCOHEMOGLOBIN (HGB A1C) 5.3 % (4.8-5.6)
[2020-06-20 04:34] LABS: ABSOLUTE NEUTROPHILS 3.7 thou/uL (1.4-8.2); BASOPHILS 0.8 % (0.0-2.0); EOSINOPHILS 4.1 % (0.0-3.0); HEMATOCRIT 41.6 % (37.0-47.0); HEMOGLOBIN 14.1 gm/dL (12.0-15.0); LYMPHOCYTES 23.6 % (24.0-44.0); MCH 31.4 pg (26.0-34.0); MCHC 33.8 g/dL (28.0-37.0); MCV 92.7 fL (80.0-100.0); MONOCYTES 8.4 % (1.0-8.0); PLATELET COUNT 269 thou/uL (150-400); POLYS 63.1 % (36.0-66.0); RBC 4.48 mil/uL (4.20-5.00); RDW 12.7 % (10.5-14.5); WBC 5.8 thou/uL (4.0-11.0)
[2020-06-20 04:53] LABS: ALBUMIN 3.3 g/dL (3.4-5.0); CALCIUM 8.6 mg/dL (8.5-10.1); CREATININE 0.7 mg/dL (0.6-1.0); MAGNESIUM 2.1 mg/dL (1.8-2.4); POTASSIUM 3.5 mmol/L (3.5-5.1); TOTAL BILIRUBIN 0.3 mg/dL (0.2-1.0); TOTAL PROTEIN 6.5 g/dL (6.4-8.2)
--- NOTE | 2020-06-20 04:56 | NUR ---
ASSUMED CARE 1900. PT ALERT AND ORIENTED. VITALS STABLE WITH ELEVATE BP, SP CVA. PT DENIES CHEST PAINS, NAUSEA OR VOMITING. NO CHANGES IN NIH SCORES (2) NOTED SINCE BEGINNING OF SHIFT. REPORTS LEFT FACIAL NUMBNESS. NO OTHER CONCERNS. WILL CONTINUE TO MONITOR.
--- NOTE | 2020-06-20 17:58 | NUR ---
PT CARE ASSUMED AT 0700. ASSESSMENT CHARTED. MEDICATION CHARTED. SINUS RHYTHM BUNDLE BRANCH BLOCK. LAC IV. PUREED DIET/NECTAR THICK LIQUID; PILLS TO BE CRUSHED IN PUDDING; PT DOES NOT CARE FOR APPLESAUCE. PAIN IN LLE; FENTANYL FOR PAIN. FREQUENT TRIPS TO BSC; BRIEFS; URGENCY.
[2020-06-21 00:22] VITALS: BP 158/67
[2020-06-21 02:55] VITALS: BP 147/57
[2020-06-21 06:05] LABS: CALCIUM 8.9 mg/dL (8.5-10.1); CREATININE 0.7 mg/dL (0.6-1.0); PHOSPHORUS 3.2 mg/dL (2.5-4.9); POTASSIUM 3.5 mmol/L (3.5-5.1)
--- NOTE | 2020-06-21 07:51 | EKG ---
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: JORDAN : 1940 Requested By: Gemma Dominguez Order Number: [id number] MD: Fco Morales Measurements Intervals [place] Rate: 67 P: 44 LA: 187 QRS: -63 QRSD: 139 T: 42 QT: 458 QTc: 484 Interpretive Statements Sinus rhythm RBBB and LAFB Probable left ventricular hypertrophy Compared to ECG 08/18/2013 15:28:54 No significant change was found Electronically Signed On 06-21-2020 7:51:32 DIGITAL ASSOCIATE by Fco Morales [email or web address] <ELECTRONICALLY SIGNED> By: Fco Morales MD, [facility] 06/21/20 0751 [phone] Fco Morales MD, [facility] /EPI
[2020-06-21 08:35] VITALS: BP 167/63
--- NOTE | 2020-06-21 08:39 | NUR ---
ASSUME CARE 1900. PT/VITALS. BP RUNS EXTREMELY AT TIMES/METOPROLOL 5MG IV FOR SBP >150. INTERMITTENT LLE PAIN. MODERATE TOLERANCE TO ACTIVITY. WOULD BENEFIT FROM PT/OT AND REHAB ON DISCHARGE. PROGRESSING MODERATELY TO PLAN OF CARE. PLAN IS TO CONTINUE TO MONITOR LOC AND FOR NON-BARIUM SWALLOW STUDY. WILL CONTINUE TO MONITOR AND FOLLOW WITH POC
--- NOTE | 2020-06-21 08:42 | NUR ---
ASSUMED CARE OF PT AFTER SHIFT CHANGE, A&0X4, AMB W/ASSIST AND WALKER, LIVES AT HOME W/SPOUSE, WAS CRYING AT FIRST ASSESSMENT, SAID HER CALL LIGHT HADN'T WORKED LAST HOUR AND SHE WAS HALF IN HE BED. IS IN A STATE OF CRYING REMINISCING ABOUT PREV SURGERIES, ASSURED HER WE'D TAKE CARE OF HER ALL DAY SHE WOULD HAVE ME. [employer] ARCHITECT PUTTING IN ORDER FOR CALL LIGHT ALL ARE PLUGGED IN. HER GOAL TODAY IS TO GET HER HAIR SHAMPOOED. ENCOURAGED HER TO USE CALL LIGHT FOR ANY NEEDS. ALSO FEELING UPSET ABOUT HER DX OF STROKE
--- NOTE | 2020-06-21 09:18 | NUR ---
ST CONSULTED WITH DR PA WITH GI AND SPOKE WITH THE PATIENT REGARDING PLANS FOR VIDEOSWALLOW AND DETERMINED BARIUM MAY BE USED FOR THE STUDY. THERE IS NO ALLERGY.
--- NOTE | 2020-06-21 11:26 | NUR ---
ASSESSMENT: CM REVIEWED CHART AND SPOKE WITH PATIENTS Daughter WHO IS IN PTS ROOM. PT ADMITTED DUE TO BRAINSTEM CVA. PT LIVES IN A HOUSE WITH HER . PT HAS ONE STEP TO ENTER AND NO STEPS SHE HAS TO USE ONCE INSIDE. PT HAS A WALKER AT HOME FOR ASSISTANCE WITH AMBULATION. PT IS INDEPENDENT WITH ADLS AND HAS A GRAB BAR IN THE SHOWER. PT IS STILL ABLE TO COOK HER MEALS. PT HAS BEEN TO [facility] IN THE PAST AND HAS ALSO HAD [facility]. 5N HAS BE CONSULTED TO SEE PT. CM SPOKE WITH PTS DAUGHTER WHO REPORTS THEY PREFER HOME WITH HH BUT IF PHYSICIANS RECOMMEND ACUTE REHAB THEY WILL LIKELY BE OPEN TO IT. CM AWAITING FURTHER INPUT FROM 5N AND THERAPIES. PT IS ALSO GETTING A VIDEO SWALLOW TODAY. CM WILL CONTINUE TO FOLLOW TO ASSIST NEEDED.
[2020-06-21 11:30] VITALS: BP 151/70
--- NOTE | 2020-06-21 13:35 | 2DMMODE ---
[facility] [place] [address] 2 D/M-MODE ECHOCARDIOGRAM Name: ROSALIND GUERIN I Room #: 216-P ADM IN M.R.#: [id number] Admission: 06/18/20 Attend Phys: Gemma Dominguez MD Discharge: Date of : 39 Report #: [id number] THIS REPORT FOR: cc: Naun Avalos,Toby Alexander MD ~ APPROVED REPORT Study performed: 06/21/2020 12:49:33 EXAM: Comprehensive 2D, Doppler, and color-flow Echocardiogram Patient Location: Bedside Room #: 216 Status: routine BSA: 1.59 HR: 63 bpm BP: 185/75 mmHg Rhythm: NSR Other Information Study Quality: Adequate Indications Stroke. Hx: HTN. Echo Enhancing Agent Indication: Rule out Shunt Agent(s) / Amount(s) Used: Agitated Saline 7 cc 2D Dimensions RVDd: 30.48 mm IVSd: 12.00 (7-11mm) LVOT Diam: 19.00 (18-24mm) LVDd: 40.00 mm PWd: 10.00 (7-11mm) LVDs: 29.60 (25-40mm) Aortic Root: 31.88 mm Volumes Left Atrial Volume (Systole) Single Plane 4CH: 22.16 mL Aortic Valve AoV Peak Minor.: 1.50 m/s AO Peak Gr.: 9.00 mmHg LVOT Max P.35 mmHg [facility] [address] [place] [address] 2 D/M-MODE ECHOCARDIOGRAM Name: ROSALIND GUERIN I Room #: 216-P [facility] IN .R.#: [id number] Admission: 06/18/20 Attend Phys: Gemma Dominguez, Discharge: Date of : 39 Report #: [id number] LVOT Max V: 0.92 m/s ANDRÉS Vmax: 1.71 cm2 Mitral Valve E/A Ratio: 0.6 MV Decel. Time: 257.05 ms MV E Max Minor.: 0.61 m/s MV A Minor.: 1.02 m/s MV PHT: 74.55 ms IVRT: 79.58 ms Pulmonary Valve PV Peak Minor.: 1.40 m/s PV Peak Gr.: 7.89 mmHg Pulmonary Vein P Vein S: 0.58 m/s P Vein A: 0.36 m/s P Vein D: 0.32 m/s P Vein A Dur.: 110.7 msec P Vein S/D Ratio: 1.81 Tricuspid Valve TR Peak Minor.: 2.44 m/s RAP Estimate: 5.00 mmHg TR Peak Gr.: 24.00 mmHg PA Pressure: 29.00 mmHg Left Ventricle The left ventricle is normal size. There is normal LV segmental wall motion. Mild basal septal hypertrophy is present. Left ventricular systolic function is normal. LVEF is 60-65%. Mild diastolic dysfunction is present. Right Ventricle The right ventricle is normal size. The right ventricular systolic function is normal. Atria The left atrium size is normal. Positive bubble study. Right to left shunting is noted consistent with PFO. The right atrium size is normal. Aortic Valve Aortic valve is mildly calcified. Mild aortic regurgitation. There is no aortic valvular stenosis. Mitral Valve The mitral valve is normal in structure. Mild mitral annular calcification. Trace mitral regurgitation. No evidence of mitral [facility] [address] [place] [address] 2 D/M-MODE ECHOCARDIOGRAM Name: ROSALIND GUERIN I Room #: 216-P [facility] IN .R.#: [id number] Admission: 06/18/20 Attend Phys: Gemma Dominguez, Discharge: Date of : 39 Report #: [id number] valve stenosis. Tricuspid Valve The tricuspid valve is normal in structure. Trace tricuspid regurgitation. Estimated PAP is 30mmHg. Pulmonic Valve The pulmonary valve is normal in structure. Trace pulmonic regurgitation. Great Vessels The aortic root is normal in size. Ascending aorta is not well visualized. IVC is normal in size and collapses >50% with inspiration. Pericardium There is no pericardial effusion. <Conclusion> The left ventricle is normal size. LVEF is 60-65%. The left atrium size is normal. The right atrium size is normal. Aortic valve is mildly calcified. Mild aortic regurgitation. The mitral valve is normal in structure. Mild mitral annular calcification. Trace mitral regurgitation. The tricuspid valve is normal in structure. Trace tricuspid regurgitation. Estimated PAP is 30mmHg. The pulmonary valve is normal in structure. Trace pulmonic regurgitation. There is no pericardial effusion. Positive bubble study. Right to left shunting is noted consistent with PFO. <ELECTRONICALLY SIGNED> By: Toby De La Rosa MD 06/21/20 1335 133 Toby De La Rosa MD /INF
--- NOTE | 2020-06-21 15:47 | NUR ---
[facility] CONSULT RECEIVED. Pt SEEN BY EMELI RAO NP. Pt INITIALLY NOT WANTING TO DO REHAB AT ALL HOWEVER PLAN IS FOR FAMILY TO HAVE MEETING TOGETHER THIS EVENING TO DETERMINE 5N VS HOME WITH HH SERVICES. FAMILY WILL UPDATE CARE TEAM IN THE MORNING OF THEIR DECISION. WILL CONTINUE TO FOLLOW. Pt IS CANDIDATE FOR 5N ACUTE REHAB IF Pt AND FAMILY AGREEABLE.
[2020-06-21 17:00] VITALS: BP 123/65
[2020-06-21 20:13] VITALS: BP 148/70
[2020-06-22 00:30] VITALS: BP 149/76
--- NOTE | 2020-06-22 04:13 | NUR ---
Assumed pt care at 1900. Pt is alert and oriented. No sign of distress noted in pt. Pt verbalizes pain to lower extremities. Pt is stable. Fall precaution in place. Assessment completed and documented. Scheduled meds administered to pt. NPO for video swallow study. Continue to monitor. No further needs at this time.
[2020-06-22 05:52] VITALS: BP 140/48
[2020-06-22 09:50] VITALS: BP 148/71
[2020-06-22] MEDS ORDERED: PEPCID20 MG PO (12:00)
[2020-06-22] MEDS ORDERED: 8 HOUR PAIN RE650 M1 PO (12:00)
[2020-06-22] MEDS ORDERED: ASPIR 8181 MG PO (12:00)
[2020-06-22] MEDS ORDERED: CLOPIDOGREL75 MG PO (12:00)
[2020-06-22 12:19] VITALS: BP 148/71
--- NOTE | 2020-06-22 12:23 | NUR ---
on-going assessment: CM REVIEWED CHART AND SPOKE WITH PATIENT AND HER DAUGHTER WHO WAS AT THE BEDSIDE. SHE REPORTS THEY HAD A FAMILY MEETING AND THEY DO NOT WANT TO GO TO 5N BUT WANT PT TO RETURN HOME WITH [facility] AND FAMILY SUPPORT. PTS DAUGHTER STATES SHE HAS ALL THE EQUIPMENT AT HOME THAT SHE NEEDS AND THEY PREFER TO HAVE PATIENT AND HOME AND FAMILY CAN HELP ASSIST THEM NEEDED. CM NOTIFIED ATTENDING WHO ALSO SPOKE WITH THE DAUGHTER. PT HAS PLANS TO DISCHARGE TODAY WITH ( [facility]). CM FAXED [facility] DISCHARGE ORDERS and left A MESSAGE NOTIFYING THEM OF D/C.
[2020-06-22 12:34] VITALS: BP 130/63
--- NOTE | 2020-06-22 13:50 | NUR ---
ASSUMED CARE PT SHIFT CHANGE. ASSESSMENTS CHARTED.MEDS GIVEN PER OCT. PT ALERT AND ORIENTED.VSS. C/O PAIN IN LOWER EXTREM MANAGED WITH IV PAIN MEDS. GIVEN BEFORE DISCHARGE, VERIFIED TO DO SO WITH PHYSICIAN. PT UP WITH WALKER X1 ASSIST TOLERATING WELL. DC PAPERWORK DISCUSSED WITH PT AND DAUGHTER COMMUNICATES UNDERSTANDING. IV REMOVED TELE REMOVED PT LEFT UNIT WITH ALL BELONGINGS ACCOMPANIED BY DAUGHTER.
--- NOTE | 2020-06-23 08:38 | CRIT ---
[facility] [place] [address] CRITICAL CARE NOTE Name: ROSALIND GUERIN I Room #: 216-P [facility] IN M.R.#: [id number] Admission: 06/18/20 Attend Phys: Gemma Dominguez MD Discharge: 06/22/20 Date of : 39 Report #: [id number] THIS REPORT FOR: //name// CC: Javier Avalos DATE OF SERVICE: 06/20/2020 HISTORY OF PRESENT ILLNESS: The patient is a very pleasant 80-year-old female that presented to ____ [facility] yesterday for acute difficulty speaking, left-sided facial numbness and weakness, generalized beginning that morning. She had a negative CT scan that was done there and had significant improvement of symptoms; however, decided to be transferred to [facility] for further evaluation and possible treatment. Her medical history is notable for chronic pain, spinal stenosis, osteoarthritis, hypertension, hyperlipidemia, chronic left lower extremity weakness, reflux, dysphagia with esophageal dilation in the past, constipation, urinary incontinence, and hypothyroidism. She has had multiple surgeries as well, which are well documented in her history and physical. She denies alcohol or tobacco consumption. Her medications include vitamin C, Neurontin, levothyroxine, mag oxide, calcium citrate, multiple vitamins, Estrace, meloxicam and Colace. REVIEW OF SYSTEMS: Negative for weight loss, weakness or fatigue. She denies head, eyes, ears, nose or throat complaints. Besides that mentioned above, she denies chest pain, chest palpitation, chest pressure, cough, shortness of breath, wheezing, genitourinary, musculoskeletal or neuropsychiatric complaints otherwise. PHYSICAL EXAMINATION: GENERAL: The patient is afebrile. VITAL SIGNS: Stable. HEENT: Nonicteric. NECK: No JVD, thyromegaly or bruits. She does have mild left facial droop. CARDIOVASCULAR: Not examined. LUNGS: Not examined. ABDOMEN: Soft, nondistended. EXTREMITIES: Grossly intact otherwise. NEUROLOGIC: Grossly intact otherwise. LABORATORY DATA: Reviewed and not significantly abnormal. Her imaging studies including carotid Doppler, brain MRI with MRA, head MRI, spine MRI, and chest CT revealed evidence of two adjacent foci of acute recent lacunar type infarction within the central right paramedial aspect of the jaskaran. No evidence of hemorrhagic transformation. [address] [address] CRITICAL CARE NOTE Name: ROSALIND GUERIN I Room #: 216-P [facility] IN M.R.#: [id number] Admission: 06/18/20 Attend Phys: Gemma Dominguez MD Discharge: 06/22/20 Date of : 39 Report #: [id number] ASSESSMENT AND PLAN: In summary, the patient has symptoms and presentation, as well as MRI evidence of acute cerebrovascular accident. She has had near complete symptom resolution currently. She is being worked up from a neurologic standpoint and we would proceed with elective upper endoscopy to exclude esophageal stricture. She has had esophageal dilation in the past with significant improvement. I am going to order a formal swallow study to exclude significant oropharyngeal dysphagia. Thanks for allowing me to participate in the care of this nice woman. <ELECTRONICALLY SIGNED> By: Tomas Novoa MD 06/23/20 0838 1045 1835 Aashish Carver MD /nt
== END 2020-06-22 13:30 | disposition home health service (06) | DRG 65 ==
LOC: 2N 22:07
PROVIDERS: Internal Medicine; Nurse Practitioner Family; Psychiatry & Neurology Neuromuscular Medicine; ADMIT Internal Medicine; ATTEND Internal Medicine
DX: I63.89 Other cerebral infarction (principal); I69.354 Hemiplegia and hemiparesis following cerebral infarction affecting left non-dominant side; M48.00 Spinal stenosis, site unspecified; K21.9 Gastro-esophageal reflux disease without esophagitis; M19.90 Unspecified osteoarthritis, unspecified site; I10 Essential (primary) hypertension; E78.5 Hyperlipidemia, unspecified; E03.9 Hypothyroidism, unspecified; K08.409 Partial loss of teeth, unspecified cause, unspecified class; Z96.651 Presence of right artificial knee joint; Z96.641 Presence of right artificial hip joint; Z96.652 Presence of left artificial knee joint; G89.29 Other chronic pain; M54.2 Cervicalgia; R13.10 Dysphagia, unspecified; M85.80 Other specified disorders of bone density and structure, unspecified site; I73.9 Peripheral vascular disease, unspecified; Z90.49 Acquired absence of other specified parts of digestive tract; Z90.710 Acquired absence of both cervix and uterus; Z88.0 Allergy status to penicillin; Z91.041 Radiographic dye allergy status; Z79.899 Other long term (current) drug therapy
CPT/HCPCS: 10081; 10797

== ENCOUNTER → 2020-08-24 | Outpatient (CLI) | payer OTHER, BC ==
[~2020-08-24] VITALS: Ht 147.3 cm; Wt 66.8 kg
[~2020-08-24] MED LIST changes: +8 HOUR PAIN RE650 M1 PO; +ACID CONTROLLER20 MG PO; +ASPIR 8181 MG PO; +CALCIUM MAGNES1 EACH PO; +CLOPIDOGREL75 MG PO; +CLOTRIMAZOLE-BE15 GM TP; +OMEPRAZOLE40 MG PO; +PEPCID20 MG PO; +PLAVIX 75 MG TA75 MG PO; +PROCTOCREAM-HC30 GM RECTAL; +PROCTOZONE-HC30 GM TOP; +VITAMIN D3 COM1 EACH PO; +ZYRTEC10 M5 PO
[2020-08-24 14:11] VITALS: BP 180/94
--- NOTE | 2020-08-24 14:55 | NUR ---
Pain Clinic Assessment: 1. History of Osteoarthritis: SPINE History of Rheumatoid Arthritis: DENIES 2. Height: 4 ft. 10 in. 147.3 cm. Weight: 147.2 lb. oz. 66.769 kg. Patient's BMI: 30.8 3. Vital Signs: BP: 180/94 Pulse: 74 Resp: 18 Temp: 02 Sat: 98 ECG Mon: 4. Pain Intensity: 6-7 5. Fall Risk: Dizziness: N Needs help standing or walking: Y Fallen in the last 3 months: N Fall risk comments: VERTIGO WHEN TURNS OVER IN BED 6. Patient on Blood Thinner: Clopidogrel Bisulf(Plavix 7. History of Hypertension: N 8. Opioid Therapy greater than 6 weeks: N Opiate Contract Signed: 9. Risk Assessment Tool Provided: LOW RISK 0/3 10. Functional Assessment Tool: 41/70 11. Recreational Drug Use: Never Drug Type: Tobacco Use: Never Smoker Tobacco Type: Amount or Packs/day: How Many Years: Alcohol Use: No Frequency: Quant:
--- NOTE | 2020-08-25 12:59 | HPC ---
[facility] [address] [place] [address] PAIN MANAGEMENT CONSULTATION Name: ROSALIND GUERIN I Room #: REG GABRIELLA M.Hallie.#: [id number] Admission: 08/24/20 Attend Phys: Kvng Mcwilliams DO Discharge: Date of : 39 Report #: [id number] THIS REPORT FOR: cc: Naun Avalos,Kvng Elizabeth DO ~ DATE OF SERVICE: 08/24/2020 REFERRING PHYSICIAN: Naun Avalos MD CHIEF COMPLAINT: Back pain, bilateral lower extremity pain. HISTORY OF PRESENT ILLNESS: As you know, the patient is a very pleasant 80-year-old female with longstanding history of low back pain, bilateral lower extremity pain with paresthesias secondary to progressively worsening spinal stenosis of lumbar spine. The patient has been treated medically with a combination of tramadol and meloxicam with excellent benefit. With the medications, the patient was reporting 80-90% improvement in overall pain. Unfortunately, the patient sustained a stroke very recently. The source of this stroke still remains unclear. She has been started on clopidogrel, which precludes the patient from continuing the use of meloxicam, her baseline pain medication. Apparently during her hospitalization, she was taken off of her gabapentin as well and her pain intensity carlos quite quickly to a level of 7/10. She has restarted her gabapentin, but has yet to notice improved analgesic benefit. She continues to experience pain for which she places pain score today at level of 6-7/10. She continues to experience some vertigo sensations upon arising, this is believed to be due to her stroke. She did have mostly dysphagia and some facial droop with the stroke, but did not have any other motor weakness. Her dysphagia has improved significantly according to family and she is easily understood in our conversation today. She returns today for adjustments in medication management, to discuss treatment options from an interventional standpoint. ALLERGIES: PENICILLIN, BENADRYL, FENOFIBRATE, STATINS, COENZYME-Q, IODINE, VITAMIN E, LASIX. CURRENT MEDICATIONS: Plavix 75 mg once a day, famotidine 20 mg twice a day, gabapentin 300 mg in the morning and 600 mg at night, levothyroxine 50 mcg per day, tramadol 50 mg p.r.n., vitamin D 2000 units once a day, Zyrtec p.r.n. SOCIAL HISTORY: The patient denies tobacco, alcohol, IV or illicit drug use. She is retired, retired years ago. She is accompanied by her daughter who is present in room today. IMAGING: There is no [place] [address] PAIN MANAGEMENT CONSULTATION Name: ROSALIND GUERIN I Room #: REG GABRIELLA Fierro#: [id number] Admission: 08/24/20 Attend Phys: Kvng Mcwilliams DO Discharge: Date of : 39 Report #: [id number] PQRS: The patient has known arthritic changes of the bilateral hips, status post total hip arthroplasty, bilateral knees, bilateral hands and lumbar spine. No rheumatoid arthritis. She is placing pain today around 6-7/10. PHYSICAL EXAMINATION: HEENT: Normocephalic, atraumatic. Pupils are reactive. Extraocular muscles are intact. NEUROLOGIC: Speech appears fluent and understandable. The patient is wearing a mask in compliance with COVID-19 regulations. LUNGS: Appear clear. No wheeze, rhonchi or rales. CARDIOVASCULAR: Regular. No appreciable gallop, no rub. ABDOMEN: Soft, obese, normal active bowel sounds. EXTREMITIES: Show no clubbing, no cyanosis, no edema. MUSCULOSKELETAL: Lower extremity strength remains symmetrical, but deconditioned. Hip flexion, knee extension is limited due to hip pain, status post surgery, which continues to be problematic for the patient. Seated straight leg raising negative. Supine straight leg raising negative. Danya's test is positive. Modified Gaenslen's positive for axial low back pain. Gait is antalgic and she is using a cane for ambulation. ASSESSMENT: 1. Chronic lumbar radiculopathy. 2. Lumbosacral spondylosis with radiculopathy. 3. Postsurgical left hip pain. 4. Chronic intractable pain. 5. Recent stroke with minimal residual deficits, but no anticoagulation. PLAN: 1. The patient returns today in followup visit; unfortunately, having suffered a stroke. The stroke left her with some dysphagia and some facial droop, but no significant motor weakness. The patient indicates that her dysphagia has improved on a daily basis, she is quite understandable at today's visit. She does not appear to be having difficulty with word formation or speech. The patient unfortunately has been started on an anti-inflammatory, which now precludes her from undergoing epidural injections or other more aggressive treatment options and also precludes nonsteroidal anti-inflammatories. This is unfortunate as the patient was receiving excellent benefit with combination of gabapentin and meloxicam for baseline pain control. She returns for adjustments in medication as she can no longer take nonsteroidal anti-inflammatories. 2. We recommend continuing gabapentin. She can escalate the dose as necessary. She is taking one 300 mg tablet in the morning and two 300 mg at night. She can escalate the dose every 5 days by increasing by 1 and watching for side effects of sleepiness, disorientation, confusion, mental slowing. The patient will begin the titration slowly and adjust as necessary. If she reaches side effects, reduce to the dose prior and continue the medication at that level. The patient was given a prescription of gabapentin today. [facility] [address] [place] [address] PAIN MANAGEMENT CONSULTATION Name: ROSALIND GUERIN I Room #: REG GABRIELLA Gamez.#: [id number] Admission: 08/24/20 Attend Phys: Kvng Mcwilliams DO Discharge: Date of : 39 Report #: [id number] 3. We recommend strongly that the patient utilize the tramadol for pain control. She is seeing good benefit by taking 1 in the morning along with her meloxicam prior to her stroke. We recommend that she take 1 in the morning, half tab at around 1-2 p.m. in the afternoon and again half tab towards the evening hours. This should provide the patient with baseline pain control and reduce any potential side effects from anti-inflammatory medications with her Plavix. The patient will trial this over the next couple of weeks, contact our clinic if she has any issues with the therapy. She was given a prescription of tramadol 50 mg dose to take up to 4 times a day if necessary. I have given her 120 tablets sent to her local pharmacy. 4. We plan to see the patient back in followup visit on an as needed basis. We are hopeful the patient will see good and prolonged benefit with the adjustments made in medication therapy. She will contact our clinic with any questions or concerns in regards to the use of the medication or any potential side effects. <ELECTRONICALLY SIGNED> By: Kvng Mcwilliams DO 08/25/20 1259 1207 1245 Kvng Mcwilliams DO /nt
== END ==
LOC: PAIN 06:51
PROVIDERS: ATTEND Anesthesiology Pain Medicine
DX: M47.26 Other spondylosis with radiculopathy, lumbar region (principal); G89.4 Chronic pain syndrome; Z79.899 Other long term (current) drug therapy; Z88.0 Allergy status to penicillin; Z88.8 Allergy status to other drugs, medicaments and biological substances; Z91.040 Latex allergy status

== ENCOUNTER → 2021-01-25 | Outpatient (CLI) | payer OTHER, BC ==
[~2021-01-25] VITALS: Ht 147.3 cm; Wt 64.4 kg
[~2021-01-25] MED LIST changes: +APAP650 PO; +ASA81BEC PO; +DICLOFENAC SOD100 G1 TOP; +NEURONTIN300 MG PO
[2021-01-25 09:53] VITALS: BP 163/86
--- NOTE | 2021-01-25 09:59 | NUR ---
Pain Clinic Assessment: 1. History of Osteoarthritis: SPINE History of Rheumatoid Arthritis: DENIES 2. Height: 4 ft. 10 in. 147.3 cm. Weight: 142.0 lb. oz. 64.411 kg. Patient's BMI: 29.7 3. Vital Signs: BP: 163/86 Pulse: 75 Resp: 16 Temp: 02 Sat: 99 ECG Mon: 4. Pain Intensity: 7 5. Fall Risk: Dizziness: N Needs help standing or walking: N Fallen in the last 3 months: N Fall risk comments: BROKE HER TOE ON LEFT FOOT 12/23/20 WHEN SHE STOOD UP. DENIES ANY FALLS 6. Patient on Blood Thinner: Clopidogrel Bisulf(Plavix 7. History of Hypertension: N 8. Opioid Therapy greater than 6 weeks: N Opiate Contract Signed: 9. Risk Assessment Tool Provided: LOW RISK 0/3 10. Functional Assessment Tool: 11. Recreational Drug Use: Never Drug Type: Tobacco Use: Never Smoker Tobacco Type: Amount or Packs/day: How Many Years: Alcohol Use: No Frequency: Quant:
--- NOTE | 2021-01-26 07:55 | HPC ---
[facility] [address] [place] [address] PAIN MANAGEMENT CONSULTATION Name: ROSALIND GUERIN I Room #: JENELLE QUIROZ M.R.#: [id number] Admission: 01/25/21 Attend Phys: Park Galan Discharge: Date of : 39 Report #: [id number] THIS REPORT FOR: cc: Naun Avalos,Park Monet ~ DOC #: [id number] cc: Naun Avalos MD, DO Park Bettencourt, MARJORIE DATE OF SERVICE: 01/25/2021 CHIEF COMPLAINT: Back pain, bilateral lower extremity pain. HISTORY OF PRESENT ILLNESS: This is a pleasant 81-year-old female who returns to the pain clinic today for renewal of her medications and to discuss a possible epidural injection. She states that her pain has been becoming increasingly worse across her low back radiating to her legs bilaterally. She describes it as a sharp, shooting, deep ache as a 7/10 today. Walking and standing are becoming more difficult. She reports that she takes her tramadol in the morning and does work around the house. By afternoon, she needs to rest and is not able to get much accomplished. She has had previous injections from Dr. Kvng Mcwilliams that had been helpful. Her last one a year ago. The patient reports since last injection unfortunately, she has been on Plavix and had to stop her meloxicam. She states that medication have been beneficial as well as her tramadol in decreasing a significant portion of her pain. She believes that has played a part in her increased pain as well. ALLERGIES: PENICILLIN, BENADRYL, FENOFIBRATE, STATIN, CO-ENZYMES, IODINE, VITAMIN E, AND LASIX. CURRENT LIST OF MEDICATIONS: Aspirin, tramadol, gabapentin 1200 mg daily, calcium, Zyrtec, vitamin D, ____, Plavix, Pepcid, Colace, levothyroxine, ____ vitamin C. PATIENT'S PQRS: 1. She has osteoarthritis in her spine. Denies any rheumatoid arthritis. Height is 4 feet 10 inches, weight is 142. BMI is 29. Vital signs 163/86, pulse is 75, respirations 16, oxygen sat is 99%. 2. Pain score 7/10. 3. Denies dizziness does not need help walking or standing. She did not fall, but she broke her foot getting up from a chair and stumbled. 4. The patient is on Plavix and denies any history of hypertension. 5. Opioid therapy is greater than 6 weeks, therefore an opioid signed contract is on the chart. RISK ASSESSMENT: Low. [address] [address] PAIN MANAGEMENT CONSULTATION Name: ROSALIND GUERIN I Room #: REG GABRIELLA Fierro#: [id number] Admission: 01/25/21 Attend Phys: Park Galan Discharge: Date of : 39 Report #: [id number] FUNCTIONAL ASSESSMENT: 4170. 6. Recreational drug use, she denies. She is not a smoker and does not drink alcohol. According to the prescription monitoring system the patient is filling appropriately in a timely fashion. She is due to fill her medications in a few weeks. Her morphine mEq is 20 MMEs. PHYSICAL EXAMINATION: GENERAL: This is alert and orientated 81-year-old female who appears her stated age, rating her pain score today at 7/10. She is a good historian. HEENT: Normocephalic, atraumatic. Extraocular eye muscles are intact. She is wearing a mask. Speech is fluent. EXTREMITIES: No clubbing, no cyanosis, no edema. MUSCULOSKELETAL: She has tenderness in the lumbosacral region that radiates into her low back. Seated straight leg raising is negative. Supine straight leg raising is negative. Modified Gaenslen's positive for axial low back pain, lower extremity strength appears symmetrical at 5/5. Tenderness in her knees bilaterally with no edema. ASSESSMENT: 1. Chronic lumbar radiculopathy. 2. Lumbosacral spondylosis with radiculopathy. 3. Continued hip pain status post surgery. 4. Chronic intractable pain. 5. Complex medical management utilizing scheduled opioid medications. PLAN: 1. We discussed treatment options with the patient today. The patient finds the medications are somewhat beneficial in helping relieve her pain. Unfortunately, she has not been able to take her meloxicam, which did help significantly due to her previous stroke and now on Plavix. We did discuss utilizing some Voltaren gel which does not affect her systemically as oral anti-inflammatories do, encouraging her that she may use up to 2 times a day and see if that is beneficial. Scripts will be sent electronically for Voltaren gel 2 grams q.i.d. 2 tubes with 2 refills. 2. We will continue her on her tramadol 50 mg #120 with [address] Kvng Mcwilliams will send this electronically. I encouraged the patient to try utilizing all 4 doses until she is able to verify being off her Plavix for possible epidural steroid injection. 3. We will plan for a lumbar epidural steroid injection at the L5-S1 dermatomal distribution by Dr. Kvng Mcwilliams after she has obtained the clearance to be off her Plavix. She has had her cerebrovascular accident greater than 6 months ago, so I believe she will be able to be off for at least 7 days. 4. We will continue her on her gabapentin as well. Sending them electronically to her mail of pharmacy [facility], 300mg- 360 tablets with 2 refills. [facility] [address] [place] [address] PAIN MANAGEMENT CONSULTATION Name: ROSALIND GUERIN I Room #: REG [facility] M.R.#: [id number] Admission: 01/25/21 Attend Phys: Park Galan Discharge: Date of : 39 Report #: [id number] Time spent in patient consultation reviewing recent studies and clinical notes and physician reports, physical examination and correlation of findings and medical documentation to determine possible treatment options is 16 minutes. Time spent preparing for appointment reviewing prescription monitoring reports, reviewing previous records and treatment options, reviewing current medications is 5 minutes. Time spent preparing and sending electronic prescriptions with collaborating physician, Dr. Kvng Mcwilliams, documentation of visit and plan of treatment, 5 minutes. Total time spent 26 minutes. MARJORIE Bustamante/SAMANTHA/LYDIA <ELECTRONICALLY SIGNED> By: Park Galan 01/26/21 0755 1047 2100 Park Galan /nt
== END ==
LOC: PAIN 07:01
PROVIDERS: ATTEND Clinical Nurse Specialist Adult Health
DX: M47.27 Other spondylosis with radiculopathy, lumbosacral region (principal); G89.4 Chronic pain syndrome; Z79.891 Long term (current) use of opiate analgesic; Z79.899 Other long term (current) drug therapy

== ENCOUNTER → 2021-05-03 | Outpatient (CLI) | payer OTHER, BC ==
[~2021-05-03] VITALS: Ht 147.3 cm; Wt 62.9 kg
[~2021-05-03] MED LIST changes: +CAL MAG ZINC +1 EAC1 PO
[2021-05-03 12:49] VITALS: BP 176/73
--- NOTE | 2021-05-03 13:44 | NUR ---
Pain Clinic Assessment: 1. History of Osteoarthritis: SPINE History of Rheumatoid Arthritis: DENIES 2. Height: 4 ft. 10 in. 147.3 cm. Weight: 138.6 lb. oz. 62.868 kg. Patient's BMI: 29.0 3. Vital Signs: BP: 176/73 Pulse: 75 Resp: 16 Temp: 02 Sat: 99 ECG Mon: 4. Pain Intensity: 4-5 5. Fall Risk: Dizziness: N Needs help standing or walking: Y Fallen in the last 3 months: Y Fall risk comments: BROKE HER TOE ON LEFT FOOT 12/23/20 WHEN SHE STOOD UP. DENIES ANY FALLS 6. Patient on Blood Thinner: Clopidogrel Bisulf(Plavix 7. History of Hypertension: N 8. Opioid Therapy greater than 6 weeks: N Opiate Contract Signed: 9. Risk Assessment Tool Provided: LOW RISK 0/3 10. Functional Assessment Tool: 11. Recreational Drug Use: Never Drug Type: Tobacco Use: Never Smoker Tobacco Type: Amount or Packs/day: How Many Years: Alcohol Use: No Frequency: Quant:
--- NOTE | 2021-05-04 08:12 | HPC ---
[facility] [place] [address] PAIN MANAGEMENT CONSULTATION Name: ROSALIND GUERIN I Room #: JENELLE QUIROZ Franco.#: [id number] Admission: 05/03/21 Attend Phys: Park Galan Discharge: Date of : 39 Report #: [id number] THIS REPORT FOR: cc: Naun Avalos Steven F. DO Hocker, Amanda CNS ~ cc: Kvng Mcwilliams DO, Steven F. Charochak, MD DATE OF SERVICE: 05/03/2021 CHIEF COMPLAINT: Back pain, lower extremity pain and left hip pain. HISTORY OF PRESENT ILLNESS: This is an 81-year-old female whose had appointment today in the pain clinic with Dr. Mcwilliams. She requested refills of her medication at his appointment and therefore we scheduled her today for renewal of her medications. The patient reports the gabapentin has been beneficial in helping alleviate her leg pain. She reports less burning and shooting pain with the gabapentin, taking them 2 at dinner and 2 at bedtime. Today, she rates her pain score 4-5/10. She reports her pain is most problematic with getting up in the morning and repositioning herself. She also complains of left hip pain today. She has had a history of bilateral knee replacements and her right hip has been replaced. She believes that her left hip may need to be operated on since it is causing significant pain, especially in her groin. The patient reports also needing tramadol. At the end of our discussion today, she reports taking 4 tablets a day as on a scheduled basis. Not on an as needed schedule as we have encouraged. She denies any constipation or daytime somnolence as a result of her medications. ALLERGIES: PENICILLIN, STATINS, IODINE, VITAMIN E, LASIX, FENOFIBRATE, BENADRYL. MEDICATIONS: Calcium with magnesium, gabapentin 1200 mg daily, Voltaren gel p.r.n., aspirin, Plavix, Zyrtec p.r.n., vitamin D3, Pepcid, stool softener, levothyroxine, Lutein, vitamin C, vitamin B complex. PQRS: 1. She has osteoarthritic changes in her spine, hips, and knees. Denies any rheumatoid arthritis. Height is 4 feet 10, weight is 138, BMI is 29. 2. Vital signs, blood pressure 176/73, pulse is 75, respirations 16, oxygen sat is 99%. 3. Pain score is 4-5. 4. Denies dizziness. Does utilize a walker for ambulation and has fallen in the last three months. She is on Plavix. Denies any medication for hypertension. 5. Opioid therapy is greater than six weeks. We will have her sign an opioid [address] [address] PAIN MANAGEMENT CONSULTATION Name: ROSALIND GUERIN I Room #: REG CLI Vadim#: [id number] Admission: 05/03/21 Attend Phys: Park Galan Discharge: Date of : 39 Report #: [id number] contract if we continue to follow her for medication management. 6. Risk assessment is low. Functional assessment 41/70. 7. Recreational drug use, she denies. She is not a smoker and does not drink alcohol. The patient reports filling her medications appropriately in a timely fashion. According to our records, she is here in a timely fashion. PHYSICAL EXAMINATION: GENERAL: This is alert and orientated 81-year-old female who is here with her daughter. She is confused at times with certain medication, reports. Rating her pain score today at 4-5. HEENT: Normocephalic, atraumatic. Extraocular eye muscles are intact. She is wearing a mask for COVID. Her eyes are watery today due to allergies. EXTREMITIES: No clubbing, no cyanosis, no edema. She has tenderness in her right foot due to toe that was broken, wearing regular shoes today. MUSCULOSKELETAL: She has tenderness in the lumbosacral region that radiates into her low back. Seated straight leg raising is negative. Modified Gaenslen is positive for axial low back pain. She has tenderness in her left hip, radiates into her groin. She has an antalgic gait, utilizing a walker at all times. IMPRESSION: 1. Chronic lumbar radiculopathy. 2. Lumbosacral spondylosis with radiculopathy. 3. Continued hip pain, left hip. 4. Chronic intractable pain. 5. Complex medical management utilizing scheduled opioid medications. PLAN: 1. We discussed treatment options with the patient today. The patient was encouraged at her last visit to seek authorization to be off her Plavix for 1 week, so she may obtain a lumbar epidural steroid injection to see if this is beneficial in decreasing her pain. At that time, we instructed her to take her pain medicines up to four times a day as needed, but reminding her goal is not to have to provide pain medication at that level continuously. We encouraged her to get a lumbar epidural injection as soon as she is able to stop her Plavix for 1 week. Her daughter reports having an appointment with Dr. Avalos next week. They will seek approval at that time and schedule an appointment. 2. We will continue her on her tramadol on an as needed basis offering her 3 tablets a day reminding her out goal is to not continue this medication long-term. Script sent electronically by Dr. Kvng Mcwilliams. 3. We will continue her on her gabapentin. This has afforded her significant relief of her neuropathy in her legs. Encouraging her to take 2 at dinner and 2 at bedtime to prevent significant somnolence in the morning upon arising. The patient does have a history of falls. We would like her to space her dose. [facility] [address] [place] [address] PAIN MANAGEMENT CONSULTATION Name: ROSALIND GUERIN I Room #: REG [facility] [id number] Admission: 05/03/21 Attend Phys: Park Galan Discharge: Date of : 39 Report #: [id number] Scripts sent for four tablets of 300 mg gabapentin #120 with 2 refills. 4. We will send the patient for physical therapy for her ongoing left hip pain. I also encouraged her to seek out an appointment with Dr. Anthony, who has provided her surgery for her other joint replacements. The patient will have therapy in her hometown. 5. We will see the patient back within the month for a lumbar epidural steroid injection that Dr. Kvng Mcwilliams will perform. This has been beneficial in the past at the L5-S1 dermatomal level for her pain. Time spent the patient in consultation, reviewing recent studies and clinical notes and physician reports, physical examination and correlation of findings and medical documentation to determine possible treatment options 17 minutes. Time spent preparing for appointment, reviewing prescription monitoring reports, and reviewing current records and treatment options and reviewing current medications, 5 minutes. Time spent preparing and sending electronic prescriptions with collaborating physician, Dr. vKng Mcwilliams, documentation of visit and plan of treatment 5 minutes. Total time spent 27 minutes. <ELECTRONICALLY SIGNED> By: Park Galan 05/04/21811 1303 22 Park Galan /nt
== END ==
LOC: PAIN 12:25
PROVIDERS: ATTEND Clinical Nurse Specialist Adult Health
DX: G89.29 Other chronic pain (principal); M47.27 Other spondylosis with radiculopathy, lumbosacral region; M25.552 Pain in left hip; F11.90 Opioid use, unspecified, uncomplicated

== ENCOUNTER → 2021-06-02 | Outpatient (CLI) | payer OTHER, BC | LOC: NUC 09:55 | PROVIDERS: ATTEND Neuromusculoskeletal Medicine & OMM | DX: M85.80 Other specified disorders of bone density and structure, unspecified site (principal); M81.0 Age-related osteoporosis without current pathological fracture ==

== ENCOUNTER → 2021-08-09 | Outpatient (CLI) | payer OTHER, BC ==
[~2021-08-09] VITALS: Ht 147.3 cm; Wt 62.6 kg
[2021-08-09 12:51] VITALS: BP 162/84
--- NOTE | 2021-08-09 12:57 | NUR ---
Pain Clinic Assessment: 1. History of Osteoarthritis: SPINE History of Rheumatoid Arthritis: DENIES 2. Height: 4 ft. 10 in. 147.3 cm. Weight: 138.0 lb. oz. 62.596 kg. Patient's BMI: 28.8 3. Vital Signs: BP: 162/84 Pulse: 71 Resp: 20 Temp: 02 Sat: 100 ECG Mon: 4. Pain Intensity: 7 5. Fall Risk: Dizziness: N Needs help standing or walking: Y Fallen in the last 3 months: N Fall risk comments: BROKE HER TOE ON LEFT FOOT 12/23/20 WHEN SHE STOOD UP. DENIES ANY FALLS 6. Patient on Blood Thinner: Clopidogrel Bisulf(Plavix 7. History of Hypertension: N 8. Opioid Therapy greater than 6 weeks: N Opiate Contract Signed: 9. Risk Assessment Tool Provided: LOW RISK 0 10. Functional Assessment Tool: 11. Recreational Drug Use: Never Drug Type: Tobacco Use: Never Smoker Tobacco Type: Amount or Packs/day: How Many Years: Alcohol Use: No Frequency: Quant:
== END ==
LOC: PAIN 09:21
PROVIDERS: ATTEND Clinical Nurse Specialist Adult Health
DX: M47.27 Other spondylosis with radiculopathy, lumbosacral region (principal); M16.12 Unilateral primary osteoarthritis, left hip; G89.29 Other chronic pain; Z88.0 Allergy status to penicillin; Z88.8 Allergy status to other drugs, medicaments and biological substances; Z79.82 Long term (current) use of aspirin; Z79.899 Other long term (current) drug therapy